=== PATIENT | male | born 1950 ===

== ENCOUNTER 2017-10-26 10:36 | Inpatient (IN) | payer MEDICARE, BC ==
[2017-10-26] MEDS: NS 0.9% 1000 ML* 2,000 ML IV ONE (11:10)
[2017-10-26] MEDS ORDERED: Diltiazem IV* 5 MG/ML 5 ML VIAL (for loading dose/IV Push) (25 MG) IV SLOW PU ONE ×2 (11:15→11:52)
[2017-10-26 11:18] LABS: ABS Basophils 0 10^3/ul (0-0.2); ABS Eosinophils 0 10^3/ul (0-0.6); ABS Lymphocytes 1.4 10^3/ul (1.0-4.8); ABS Monocytes 1.8 10^3/ul (0-0.8); ABS Neutrophils 22.1 10^3/ul (1.5-7.7); ABS Nucleated RBC 0 10^3/ul; Eosinophil % 0.1 % (0-6); Hematocrit 38 % (42-52); Hemoglobin 12.5 g/dl (14.0-18.0); Lymphocyte % 5.6 % (25-47); Mean Corpuscular HGB Conc 33 g/dl (31-36); Mean Corpuscular Hemoglobin 29 pg (27-31); Mean Corpuscular Volume 90 fL (80-94); Mean Platelet Volume 9 um3 (7.4-10.4); Nucleated Red Blood Cells % 0; Platelet Count 364 10^3/ul (150-450); Red Blood Count 4.27 10^6/ul (4.0-5.4); Red Cell Distribution Width 14 % (10.5-15); White Blood Count 25.3 10^3/ul (3.5-10.8)
[2017-10-26 11:32] LABS: INR 1.15 (0.77-1.02)
[2017-10-26 11:34] LABS: EGFR Non-African American 61.4 (>60)
[2017-10-26] MEDS ORDERED: NS 0.9% 1000 ML* 1,000 ML IV ONE (11:41)
[2017-10-26] MEDS ORDERED: Albuterol/Ipratropium NEB.SOL* Albuterol 2.5 MG/Ipratropium 0.5 MG 3 ML INH ONE (11:44)
[2017-10-26] MEDS ORDERED: cefTRIAXone(*) 1 GM in NS 0.9% 50 ML* 50 ML IVPB ONE (11:47)
[2017-10-26] MEDS ORDERED: Azithromycin IV(*) 500 MG in NS 0.9% 250 ML* 250 ML IVPB ONE (11:47)
[2017-10-26] MEDS ORDERED: Diltiazem DRIP* 100 MG/100 ML ADDV.BAG IVPB ONE (11:53)
[2017-10-26] MEDS ORDERED: Iohexol 350* (CONTRAST) 500 ML MDV IV ONE (12:20)
--- NOTE | 2017-10-26 12:29 | RAD ---
INDICATION: Tachycardia and hypoxia COMPARISON: Most recent imaging of the chest is a CT dated May 12, 2017 TECHNIQUE: Single AP portable view of the chest was obtained. FINDINGS: Image quality is compromised due to the relative inferiority of a portable chest x-ray. There is a large density obscuring most of the left hemithorax with only the apex of the left upper lobe aerated. The right lung is adequately aerated. Visualized bones are normal for the patient's age. IMPRESSION: Interval development of a large mass obscuring most of the left hemithorax. The morphology of the mass is most consistent with lobar consolidation of the left lower lobe.
--- NOTE | 2017-10-26 13:35 | HP ---
H&P (Free Text) History and Physical: History and Physical - Critical Care Reason for admission: pneumonia, hypoxia Limitations in history/physical: none Date of admission: 10/26/2017 HPI: 67y M pmhx none significant. Comes to ER for complaints of 1 day of shortness of breath, progressive. No CP. Cough+, mild sputum. No fever/chills. Mild abd pain at times, no n/v/diarrhea. No rash/joint pains. States 2 weeks he has had sinus infection symptoms of runny nose, started PO abx 1 week prior but no improvement. No sick contacts. at bedside. Denies any other medical history, no history of arrhythmias. In ER- tmax 97, tachycardic, tachypneic, hypoxic to 80s. In rapid afib 140s EKG with rapid afib. Cxr left lower and upper lobe consolidation+ ER IVF 3L NS, started on Cardizem but bp decreasing so stopped now. IV abx with ceftriaxone and azithro iv for CAP coverage. Started on hiflow NC now 100% . Last sats 96% ROS: negative except for pertinent positives mentioned above. PMHx: none PSHx: none Family History: none significant Social History: Alcohol none , Smoking- 1ppd x40yrs, Drug use-none; family- at bedside. Allergies: Allergies Allergy/AdvReac Type Severity Reaction Status Date / Time Bee Venom Allergy Severe Swelling Verified 10/04/17 09:09 Penicillins [PCN] Allergy Mild Vomiting Verified 10/04/17 09:09 Levofloxacin [From Levaquin] AdvReac Severe See Comment Verified 10/04/17 09:09 Home Medications: Albuterol HFA INHALER* [Ventolin HFA Inhaler*] 1 puff INH Q4H PRN 09/27/17 [ History Confirmed 10/26/17] Ibuprofen TAB* [Advil TAB*] 200 mg PO Q8H PRN 10/26/17 [History Confirmed ] Mometasone NASAL (NF) [Nasonex (NF)] 50 mcg BOTH NARES DAILY 10/26/17 [History Confirmed 10/26/17] Tele: rapid afib Vitals: Vital Signs Temp 96.5 F 10/26/17 10:46 Pulse 25 10/26/17 12:40 Resp 28 10/26/17 12:45 BP 119/51 10/26/17 12:45 Pulse Ox 72 10/26/17 12:40 Intake & Output 10/25/17 10/26/17 10/26/17 18:59 06:59 18:59 Intake Total 50 Balance 50 Weight 180 lb Intake: IV Fluids 50 O2/Vent: hiflow 100% 40lpm Infusions: NS Current Medications: Diltiazem HCl (Cardizem Iv Advan*) 100 mg in 100 mls @ 5 mls/hr IVPB ED ONCE ONE PRN Reason: 5 MG/HR Stop: 10/27/17 07:52 Last Admin: 10/26/17 12:05 Dose: 5 mls/hr Physical Exam: General: awake, alert, mild resp distress, no diaphoresis Head: normocephalic, atraumatic HEENT: no pallor, no icterus, moist mucous membranes Neck: soft, supple, no jvd, no stridor CVS: taachycardic, irregular, no murmur Resp: sig dec air entry on left side, no rhales, no wheeze/rhonchi; minimal/no acc muscle use, no abd muscle use. Abdomen: soft, nontender, nondistended, bowel sounds present Ext: pulses+, warm, no edema Skin: intact, no breakdown, no dryness Neuro: awake, alert, orientedx3, moving all extremities, no gross focal deficit Labs: Laboratory Results - last 24 hr 10/26/17 10/26/17 10/26/17 11:00 11:00 11:00 WBC RBC Hgb Hct MCV MCH MCHC RDW Plt Count MPV Neut % (Auto) Lymph % (Auto) [place] % (Auto) Eos % (Auto) Baso % (Auto) Absolute Neuts (auto) Absolute Lymphs (auto) Absolute Monos (auto) Absolute Eos (auto) Absolute Basos (auto) Absolute Nucleated RBC Nucleated RBC % INR (Anticoag Therapy) 1.15 H APTT 30.9 D-Dimer, Quantitative 644 H ABG pH ABG pCO2 ABG pO2 ABG HCO3 ABG O2 Saturation ABG Base Excess Sodium 137 Potassium 3.7 Chloride 102 Carbon Dioxide 24 Anion Gap 11 BUN 35 H Creatinine 1.19 H Est GFR ( Amer) 78.9 Est GFR (Non-Af Amer) 61.4 BUN/Creatinine Ratio 29.4 H Glucose 153 H Lactic Acid Calcium 9.1 Magnesium 2.0 Total Bilirubin 1.00 AST 25 ALT 35 Alkaline Phosphatase 164 H Total Creatine Kinase 56 CK-MB (CK-2) 15.9 H Troponin I 0.03 C-Reactive Protein 167.45 H B-Natriuretic Peptide 655 H Total Protein 7.6 Albumin 3.2 Globulin 4.4 H Albumin/Globulin Ratio 0.7 L Lipase < 10 L TSH 1.32 10/26/17 10/26/17 10/26/17 11:00 11:00 12:05 WBC 25.3 H RBC 4.27 Hgb 12.5 L Hct 38 L MCV 90 MCH 29 MCHC 33 RDW 14 Plt Count 364 MPV 9 Neut % (Auto) 87.3 H Lymph % (Auto) 5.6 L [place] % (Auto) 6.9 Eos % (Auto) 0.1 Baso % (Auto) 0.1 Absolute Neuts (auto) 22.1 H Absolute Lymphs (auto) 1.4 Absolute Monos (auto) 1.8 H Absolute Eos (auto) 0 Absolute Basos (auto) 0 Absolute Nucleated RBC 0 Nucleated RBC % 0 INR (Anticoag Therapy) APTT D-Dimer, Quantitative ABG pH 7.37 ABG pCO2 37 ABG pO2 60 L ABG HCO3 22.0 ABG O2 Saturation 93.4 L ABG Base Excess -3.5 L Sodium Potassium Chloride Carbon Dioxide Anion Gap BUN Creatinine Est GFR ( Amer) Est GFR (Non-Af Amer) BUN/Creatinine Ratio Glucose Lactic Acid 3.2 H* Calcium Magnesium Total Bilirubin AST ALT Alkaline Phosphatase Total Creatine Kinase CK-MB (CK-2) Troponin I C-Reactive Protein B-Natriuretic Peptide Total Protein Albumin Globulin Albumin/Globulin Ratio Lipase TSH Imaging: cxr 10/26 - left sided consolidation lower and upper lobes Assessment: 67y M pmhx none significant. Comes to ER for complaints of 1 day of shortness of breath, progressive. No CP. Cough+, mild sputum. No fever/chills. Mild abd pain at times, no n/v/diarrhea. No rash/joint pains. States 2 weeks he has had sinus infection symptoms of runny nose, started PO abx 1 week prior but no improvement. Comes in tachypneic, tachycardic, hypoxic, rapid afib with new left sided consolidation. -Acute Hypoxic respiratory failure -Left sided lower and upper lobe pneumonia, CAP -new onset Afib with rapid vent rate -hypotension -Severe sepsis -renal insufficiency Plan: Neuro- stable CVS- rapid afib, cardizem given but dropped BP. d/c cardizem. will give dig bolus for rate control. IVF bolus for sepsis, start ns infusion. Trend LA. IV abx for CAP coverage. maintain MAP>65. BP improving, may need pressors if not improved. ECHO today. Resp- hypoxic, on hiflow, seems improved. less resp distress. NIV as needed. sputum cultures. left sided consolidation+, CTA chest now. IV abx for CAP coverage. r/o effusion also. send influenza swab. abg reviewed, hypoxia, no hypercapnea. ID- afebrile. wbc 25k. left sided pneumonia. IV ceftriaxone and azithro for CAP coverage. sputum cx. legionella ag. CT chest today. GI- regular diet. Renal- Cr 1.1, unclear if any renal insuff. IVF NS bolus given. NS infusion 75cc /hour. no stewart. Heme- hg stable. plt okay. dvt prophy with scds and heparin sq. Endo- fingersticks as needed. Musculsk- pressure ulcer proph. bedrest. Wounds- none Nutrition- reg diet. DVT prophylaxis: heparin sq GI prophylaxis: pepcid po Central Line: no Arterial Line: no Stewart Cathetor: no Disposition: admit to ICU for respiratory failure, pneumonia anticipiated length of stay >2 midnights Code Status: full code Total Critical Care time is 60 minutes, excluding procedures/teaching Savage Desouza MD [employer] (Electronically Signed)
[2017-10-26] MEDS ORDERED: Albuterol/Ipratropium NEB.SOL* Albuterol 2.5 MG/Ipratropium 0.5 MG 3 ML INH PRN (13:53)
--- NOTE | 2017-10-26 13:53 | RAD ---
INDICATION: Shortness of breath positive d-dimer. COMPARISON: Comparison is made with a prior CT of the chest from May 12, 2017. TECHNIQUE: A CT angiogram of the chest was performed with intravenous following intravenous injection of 80 ml of Omnipaque 350 nonionic contrast. Contiguous axial sections were obtained from the lung apices through the lung bases. Images were reconstructed in the coronal and sagittal planes. FINDINGS: There is relatively homogeneous opacification of the pulmonary arteries. No intraluminal filling defect or pulmonary embolism is seen. The heart is within normal limits in size. No pericardial effusion is present. The thoracic aorta is normal in caliber and demonstrates homogeneous contrast opacification. There is an enlarged precarinal lymph node measuring 1.0 cm in size which has increased in size from the prior exam and previously measured 0.5 cm in size. There are also slightly prominent lymph nodes in the aorticopulmonary window region measuring up to 0.9 cm in size which are also increased in size. There is a large loculated left pleural effusion which is new from the prior study. This causes compression and atelectasis of the left lower lobe. There is a new moderate-sized right lower lobe infiltrate suspicious for pneumonia. Again note is made of a 1.4 cm nodule in the right upper lobe and a 0.5 cm nodule in the right middle lobe which are unchanged from the prior study. There is a large expansile lesion present in the left ninth posterior lateral rib and an expansile lesion in the left posterior 12th rib. There are also multiple dorsal lytic lesions. These appear similar to the prior study. There are bilateral adrenal lesions measuring up to 4.0 cm in the right adrenal gland which are unchanged from the prior study. IMPRESSION: 1. NO EVIDENCE FOR PULMONARY EMBOLISM. 2. NEW LARGE LOCULATED LEFT PLEURAL EFFUSION. 3. NEW RIGHT LOWER LOBE INFILTRATE SUSPICIOUS FOR PNEUMONIA. 4. RIGHT UPPER AND MIDDLE LOBE PULMONARY NODULES, UNCHANGED. 5. MEDIASTINAL LYMPHADENOPATHY DEMONSTRATING SLIGHT PROGRESSION. 6. BILATERAL ADRENAL MASSES, UNCHANGED. 7. LYTIC OSSEOUS METASTASES METASTASES, UNCHANGED.
[2017-10-26] MEDS ORDERED: Digoxin IV* 0.5 MG/2 ML AMP (0.25 MG/ML) IV SLOW PU ONE ×2 (13:59→20:00)
--- NOTE | 2017-10-26 14:06 | PN ---
Progress Note - Progress Note Date of Service: 10/26/17 Note: noted findings of CT chest - left large loculated effusion, right lower lobe infiltrate/pneumonia will likely need thoracentesis for drainage, to discuss with patient. Savage Desouza Md
[2017-10-26] MEDS: Heparin VIAL(*) 5000 UNITS/ML VIAL (FIVE THOUSAND) SUBCUT SCH ×2 (15:12→22:29)
[2017-10-26] MEDS: NS 0.9% 1000 ML* 1,000 ML IV SCH ×2 (15:13→23:00)
--- NOTE | 2017-10-26 17:01 | ECHO ---
Patient: DANIELLA SAWANT [facility] Rec#: [id number] : 1950 Date: 10/26/2017 Age: 67y Height: 205.74 cm / 81.0 in Weight: 83.01 kg / 183.0 lbs Sex: M BSA: 2.23 Room#: [facility] Admit Date#: 10/26/2017 Type: Inpatient Referring: Savage Desouza Reading: Lidia Rice MD Police Officer Booking: Kristina Zepeda RDCS CC: Paramjit George MD Transthoracic Echocardiogram Indication: A-fib, shortness of breath BP: 97/55 HR: 97 Rhythm: NSR Findings History: Smoker Technical Comments: The study quality is fair. The study is technically limited due to poor acoustic windows. The study was technically limited due to the patient's inability to lay in the left lateral decubitus position. Completed at 1630. Left Ventricle: The left ventricular chamber size is normal.[place] squeezes normally, 1.3 x 1.3 structure noted in the apex on apical views, can't conclusively rule out thrombus/mass. Mild concentric left ventricular hypertrophy is observed. There is normal left ventricular systolic function.Septal dysychrony noted. The estimated ejection fraction is 55-60%. Abnormal left ventricular diastolic filling is observed, consistent with impaired relaxation. Left Atrium: The left atrium is mildly dilated. Right Ventricle: Moderator Band present. The right ventricle is mildly dilated. The right ventricular global systolic function is low normal. Right Atrium: The right atrium is moderately dilated. Aortic Valve: The aortic valve is trileaflet. The aortic valve leaflets are mildly thickened. There is a trace of aortic regurgitation. There is no evidence of aortic stenosis. Mitral Valve: There is mitral annular calcification. The mitral valve leaflets are mildly thickened. There is trace to mild mitral regurgitation. There is no evidence of mitral stenosis. Tricuspid Valve: The tricuspid valve leaflets are normal. There is trace to mild tricuspid regurgitation. The right ventricular systolic pressure is estimated at 45 mmHg. There is evidence of mild to moderate pulmonary hypertension. There is no tricuspid stenosis. Pulmonic Valve: The pulmonic valve appears normal. There is a trace pulmonic regurgitation. There is no pulmonic stenosis. Pericardium: There is no significant pericardial effusion. There are no signs of significant hemodynamic compromise. A left pleural effusion is present. There is a large pleural effusion. Aorta: There is moderate dilatation of the ascending aorta. There is no dilatation of the aortic arch. There is mild dilatation of the aortic root. Pulmonary Artery: The main pulmonary artery is not well visualized. Venous: The inferior vena cava is dilated. There is less than 50% respiratory change in the inferior vena cava dimension. Conclusions The study quality is fair. Mild concentric left ventricular hypertrophy is observed. There is normal left ventricular systolic function, mild septal dysychrony noted. The apex squeezes normally, 1.3 x 1.3 structure noted in the apex on apical views, can't conclusively rule out thrombus/mass. The estimated ejection fraction is 55-60%. The right ventricle is mildly dilated. The right ventricular global systolic function is low normal. Bi atrial enlargement. There is trace to mild mitral regurgitation. There is trace to mild tricuspid regurgitation. The right ventricular systolic pressure is estimated at 45 mmHg. A left pleural effusion is present. No prior echo available to compare. Recommend/consider echo contrast to optimize evaluation of LV apical structure. The patient was in normal sinus rhythm throughout the study. Measurements Name Value Normal Range RVIDd (AP) 2D 2.3 cm (0.9 - 2.6) RVDdMajor (2D) 4.5 cm (2.2 - 4.4) RVAW (2D) 0.6 cm (0.2 - 0.5) RAd ISD 4CH 6 cm (3.4 - 4.9) RA (A4C)W 3.7 cm (2.9 - 4.6) IVSd (2D) 1.1 cm (0.6 - 1) LVPWd (2D) 1.1 cm (0.6 - 1) LVIDd (2D) 3.9 cm (3.6 - 5.4) LVIDs (2D) 2.4 cm - LV FS (2D) 39 % (25 - 45) Aortic Annulus 2.1 cm (1.4 - 2.6) Ao root diameter (2D) 4 cm (2.1 - 3.5) Ascending Ao 4.1 cm (2.1 - 3.4) Aortic arch 2.4 cm (1.8 - 3.4) LA dimension (AP) 2D 3.2 cm (2.3 - 3.8) LAd ISD 4CH 6.5 cm (2.9 - 5.3) LA ISD 4CH W 3.6 cm (2.5 - 4.5) Name Value Normal Range LA ESV SP 4CH (A/L) 57 ml - LA ESV SP 2CH (A/L) 113 ml - LA ESV BP (A/L) 84 ml - LA ESV BP (A/L) index 38 ml/m2 - LA ESV SP 4CH (MOD) 50 ml - LA ESV SP 2CH (MOD) 109 ml - Name Value Normal Range MV E-wave Vmax 0.9 m/sec - MV deceleration time 253.86 msec - MV A-wave Vmax 0.88 m/sec - MV E:A ratio 1.01 ratio - LV septal e' Vmax 0.07 m/sec - LV lateral e' Vmax 0.07 m/sec - LV E:e' septal ratio 12.86 ratio - LV E:e' lateral ratio 12.86 ratio - Name Value Normal Range AV Vmax 1.5 m/sec - AV VTI 23.81 cm - AV peak gradient 8.71 mmHg - AV mean gradient 3.87 mmHg - LVOT Vmax 1.28 m/sec - LVOT VTI 22.05 cm - LVOT peak gradient 6.62 mmHg - LVOT mean gradient 2.74 mmHg - JOSELUIS Vmax 0.79 m/sec - Name Value Normal Range TR Vmax 2.5 m/sec - TR peak gradient 25 mmHg - RAP 20 mmHg - RVSP 45 mmHg - IVC diameter 3.5 cm - Name Value Normal Range PV Vmax 0.97 m/sec - PV peak gradient 3.76 mmHg -
[2017-10-26] MEDS ORDERED: cefTRIAXone(*) 1 GM in D5W 50 ML BAG* 50 ML IVPB ONE (18:00)
--- NOTE | 2017-10-26 18:01 | ED ---
Tejinder Stock Julia, scribed for Chava Pal MD on 10/26/17 at 1147 . Shortness of Breath - HPI Summary HPI Summary: This patient is a 67 year old M presenting to [facility] accompanied by his with a chief complaint of constant SOB since this morning. The patient rates the pain 0/10 in severity. Symptoms aggravated by nothing. Symptoms alleviated by nothing. Patient reports generalized weakness for days, mild chest pain, and a sinus infection two months ago. Patient denies leg pain, nausea, or dizziness. - History of Current Complaint Chief Complaint: EDShortnessOfBreath Time Seen by Provider: 10/26/17 10:49 Hx Obtained From: Patient Onset/Duration: Lasting Hours, Still Present Aggrevating Factors: Nothing Alleviating Factors: Nothing Associated Signs & Symptoms: Chest Pain Unrelated to Cough - Allergy/Home Medications Allergies/Adverse Reactions: Allergies Allergy/AdvReac Type Severity Reaction Status Date / Time Bee Venom Allergy Severe Swelling Verified 10/04/17 09:09 Penicillins [PCN] Allergy Mild Vomiting Verified 10/04/17 09:09 Levofloxacin [From Levaquin] AdvReac Severe See Comment Verified 10/04/17 09:09 Home Medications: Home Medications Ibuprofen TAB* [Advil TAB*] 200 mg PO Q8H PRN 10/26/17 [History Confirmed ] Mometasone NASAL (NF) [Nasonex (NF)] 50 mcg BOTH NARES DAILY 10/26/17 [History Confirmed 10/26/17] PMH/Surg Hx/FS Hx/Imm Hx Endocrine/Hematology History: Denies: Hx Diabetes Cardiovascular History: Denies: Hx Atrial Fibrillation, Hx Congestive Heart Failure, Hx Hypertension History: Denies: Hx Renal Disease Infectious Disease History: No Infectious Disease History: Denies: Traveled Outside the [place] in Last 30 Days - Family History Known Family History: Negative: Respiratory Disease - Social History Alcohol Use: Weekly Alcohol Amount: patient states varies from none to 1-2 5x/wk Hx Substance Use: No Substance Use Type: Reports: None Hx Tobacco Use: Yes Smoking Status (MU): Heavy Every Day Tobacco Smoker Type: Cigarettes Review of Systems Positive: Other - Sinus infection Positive: Chest Pain - mild Positive: Shortness Of Breath Negative: Nausea Positive: Other - Negative leg pain Neurological: Other - negative - dizziness Positive: Weakness All Other Systems Reviewed And Are Negative: Yes Physical Exam - Summary Physical Exam Summary: General: well-appearing, no pain distress Skin: warm, color reflects adequate perfusion, dry Head: normal Eyes: EOMI, WILL ENT: normal Neck: supple, nontender Respiratory: Breath sounds present. Mild respiratory distress. Bilateral rhonchi present. Cardiovascular: Regular rate. Tacycardic. Abdomen: soft, nontender Bowel: present Musculoskeletal: normal, strength/ROM intact. No edema present. Neurological: normal, sensory/motor intact, A&O x3 Psychological: affect/mood appropriate Triage Information Reviewed: Yes Vital Signs On Initial Exam: Initial Vitals Pulse Pulse Ox 91 83 10/26/17 10:45 10/26/17 10:45 Vital Signs Reviewed: Yes Diagnostics - Vital Signs Vital Signs Temp Pulse Resp BP Pulse Ox 10/26/17 11:30 32 113/81 10/26/17 11:28 29 95/42 10/26/17 11:27 57 24 105/44 76 10/26/17 11:22 107 27 98/64 86 10/26/17 11:00 165 28 99 10/26/17 10:47 104/84 10/26/17 10:46 96.5 F 169 22 104/84 90 10/26/17 10:45 91 83 - Laboratory Lab Results: Lab Results 10/26/17 10/26/17 10/26/17 Range/Units 11:00 11:00 11:00 WBC 25.3 H (3.5-10.8) 10^3/ul RBC 4.27 (4.0-5.4) 10^6/ul Hgb 12.5 L (14.0-18.0) g/dl Hct 38 L (42-52) % MCV 90 (80-94) fL MCH 29 (27-31) pg MCHC 33 (31-36) g/dl RDW 14 (10.5-15) % Plt Count 364 (150-450) 10^3/ul MPV 9 (7.4-10.4) um3 Neut % (Auto) 87.3 H (38-83) % Lymph % (Auto) 5.6 L (25-47) % [place] % (Auto) 6.9 (1-9) % Eos % (Auto) 0.1 (0-6) % Baso % (Auto) 0.1 (0-2) % Absolute Neuts (auto) 22.1 H (1.5-7.7) 10^3/ul Absolute Lymphs (auto) 1.4 (1.0-4.8) 10^3/ul Absolute Monos (auto) 1.8 H (0-0.8) 10^3/ul Absolute Eos (auto) 0 (0-0.6) 10^3/ul Absolute Basos (auto) 0 (0-0.2) 10^3/ul Absolute Nucleated RBC 0 10^3/ul Nucleated RBC % 0 INR (Anticoag Therapy) 1.15 H (0.77-1.02) APTT 30.9 (26.0-36.3) seconds D-Dimer, Quantitative 644 H (Less Than 230) ng/mL Sodium 137 (133-145) mmol/L Potassium 3.7 (3.5-5.0) mmol/L Chloride 102 (101-111) mmol/L Carbon Dioxide 24 (22-32) mmol/L Anion Gap 11 (2-11) mmol/L BUN 35 H (6-24) mg/dL Creatinine 1.19 H (0.67-1.17) mg/dL Est GFR ( Amer) 78.9 (>60) Est GFR (Non-Af Amer) 61.4 (>60) BUN/Creatinine Ratio 29.4 H (8-20) Glucose 153 H (70-100) mg/dL Lactic Acid (0.5-2.0) mmol/L Calcium 9.1 (8.6-10.3) mg/dL Magnesium 2.0 (1.9-2.7) mg/dL Total Bilirubin 1.00 (0.2-1.0) mg/dL AST 25 (13-39) U/L ALT 35 (7-52) U/L Alkaline Phosphatase 164 H (34-104) U/L Total Creatine Kinase 56 (10-223) U/L CK-MB (CK-2) 15.9 H (0.6-6.3) ng/mL Troponin I 0.03 (<0.04) ng/mL C-Reactive Protein 167.45 H (< 5.00) mg/L Total Protein 7.6 (6.4-8.9) g/dL Albumin 3.2 (3.2-5.2) g/dL Globulin 4.4 H (2-4) g/dL Albumin/Globulin Ratio 0.7 L (1-3) Lipase < 10 L (11.0-82.0) U/L TSH Pending 10/26/17 Range/Units 11:00 WBC (3.5-10.8) 10^3/ul RBC (4.0-5.4) 10^6/ul Hgb (14.0-18.0) g/dl Hct (42-52) % MCV (80-94) fL MCH (27-31) pg MCHC (31-36) g/dl RDW (10.5-15) % Plt Count (150-450) 10^3/ul MPV (7.4-10.4) um3 Neut % (Auto) (38-83) % Lymph % (Auto) (25-47) % [place] % (Auto) (1-9) % Eos % (Auto) (0-6) % Baso % (Auto) (0-2) % Absolute Neuts (auto) (1.5-7.7) 10^3/ul Absolute Lymphs (auto) (1.0-4.8) 10^3/ul Absolute Monos (auto) (0-0.8) 10^3/ul Absolute Eos (auto) (0-0.6) 10^3/ul Absolute Basos (auto) (0-0.2) 10^3/ul Absolute Nucleated RBC 10^3/ul Nucleated RBC % INR (Anticoag Therapy) (0.77-1.02) APTT (26.0-36.3) seconds D-Dimer, Quantitative (Less Than 230) ng/mL Sodium (133-145) mmol/L Potassium (3.5-5.0) mmol/L Chloride (101-111) mmol/L Carbon Dioxide (22-32) mmol/L Anion Gap (2-11) mmol/L BUN (6-24) mg/dL Creatinine (0.67-1.17) mg/dL Est GFR ( Amer) (>60) Est GFR (Non-Af Amer) (>60) BUN/Creatinine Ratio (8-20) Glucose (70-100) mg/dL Lactic Acid 3.2 H* (0.5-2.0) mmol/L Calcium (8.6-10.3) mg/dL Magnesium (1.9-2.7) mg/dL Total Bilirubin (0.2-1.0) mg/dL AST (13-39) U/L ALT (7-52) U/L Alkaline Phosphatase (34-104) U/L Total Creatine Kinase (10-223) U/L CK-MB (CK-2) (0.6-6.3) ng/mL Troponin I (<0.04) ng/mL C-Reactive Protein (< 5.00) mg/L Total Protein (6.4-8.9) g/dL Albumin (3.2-5.2) g/dL Globulin (2-4) g/dL Albumin/Globulin Ratio (1-3) Lipase (11.0-82.0) U/L TSH Result Diagrams: 10/26/17 11:00 10/26/17 11:00 Lab Statement: Any lab studies that have been ordered have been reviewed, and results considered in the medical decision making process. - Radiology Chest XR Radiology Interpretation Completed By: Radiologist - This chest XR reveals Interval development of a large mass obscuring most of the left hemithorax. The morphology of the mass is most consistent with lobar consolidation of the left lower lobe. ED Physician has reviewed this report. - EKG 11:02 Cardiac Rate: Tachycardia EKG Rhythm: Sinus Tachycardia - at 149 BPM EKG Interpretation: This EKG reveals L anterior fascicular block. Course/Dx - Course Course Of Treatment: DR LEWIS, ICU, SAW PATIENT IN ED. ADMIT ICU. - Diagnoses Provider Diagnoses: New onset a-fib, Pneumonia, Hypoxia, Hypotension - Critical Care Time Critical Care Time: 75-104 min Discharge - Discharge Plan Condition: Fair Disposition: ADMITTED TO [facility] documentation as recorded by the Tejinder marino Julia accurately reflects the service I personally performed and the decisions made by , Chava Pal MD.
[2017-10-26] MEDS ORDERED: Lidocaine 1% INJ* 10 MG/ML 30 ML SDV ONE (18:06)
[2017-10-26 18:22] LABS: INR 1.17 (0.77-1.02)
--- NOTE | 2017-10-26 18:40 | PN ---
Progress Note - Progress Note Date of Service: 10/26/17 Note: large left effusion, loculated based on US consistency, unclear if empyema/abscess or blood decision for larger surgical chest tube placement placed at bedside by Dr Briggs fould smelling, cream colored fluid already >1200cc and still draining removed from left chest. hemodynamics stable, on hiflow, hr 80s mild left chest pain prn morphine cxr now send for culture and fluid analysis. on ceftriaxone and azithro; change to zosyn for anaerobic coverage and vancomycin iv. yuriy fletcher md
[2017-10-26] MEDS ORDERED: Vancomycin per Pharmacy* NOTE FOLLOW UP SCH (19:00)
--- NOTE | 2017-10-26 19:22 | RAD ---
INDICATION: Pain following chest tube insertion COMPARISON: October 26, 2017; CTA chest October 26, 2017 TECHNIQUE: An AP portable view obtained at 1850 hours is submitted. FINDINGS: Bones/Soft Tissues: There are no acute bony findings. There is been interval placement of a left-sided chest tube. Cardiomediastinal: Heart is normal in size. Lungs: There is improved aeration left hemithorax post chest tube placement. There is no pneumothorax. There is patchy infiltrative change in the left hemithorax. The right lung is grossly clear. Pleura: Small bilateral pleural effusions. Other: None IMPRESSION: IMPROVED AERATION OF THE LEFT CHEST POST CHEST TUBE INSERTION. NO ADDITIONAL SIGNIFICANT CHANGES
[2017-10-26] MEDS: Vancomycin(*) 1,000 MG in NS 0.9% 250 ML* 250 ML IVPB ONE ×2 (19:30→19:35)
[2017-10-26] MEDS ORDERED: Acetaminophen SUPP* 650 MG SUPP PR PRN (19:58)
[2017-10-26] MEDS: Meropenem 1 GM PREMIX(*) 1 GM/50 ML BAG IV SCH (20:15)
[2017-10-26 20:32] LABS: ABS Basophils 0 10^3/ul (0-0.2); ABS Eosinophils 0 10^3/ul (0-0.6); ABS Lymphocytes 0.5 10^3/ul (1.0-4.8); ABS Monocytes 0.8 10^3/ul (0-0.8); ABS Neutrophils 24.3 10^3/ul (1.5-7.7); ABS Nucleated RBC 0 10^3/ul; Eosinophil % 0 % (0-6); Hematocrit 36 % (42-52); Hemoglobin 11.8 g/dl (14.0-18.0); Mean Corpuscular HGB Conc 32 g/dl (31-36); Mean Corpuscular Hemoglobin 29 pg (27-31); Mean Corpuscular Volume 90 fL (80-94); Mean Platelet Volume 9 um3 (7.4-10.4); Nucleated Red Blood Cells % 0; Platelet Count 318 10^3/ul (150-450); Red Blood Count 4.04 10^6/ul (4.0-5.4); Red Cell Distribution Width 14 % (10.5-15); White Blood Count 25.7 10^3/ul (3.5-10.8)
[2017-10-26] MEDS ORDERED: Morphine INJ* 2 MG/ML 1 ML SYRINGE (TWO MG - NEW SYRINGE VERSION) IV PRN (20:39)
[2017-10-26] MEDS ORDERED: Morphine INJ* 2 MG/ML 1 ML SYRINGE (TWO MG - NEW SYRINGE VERSION) ONE (20:42)
[2017-10-26 20:46] LABS: EGFR Non-African American 84.7 (>60)
[2017-10-26 21:01] LABS: Monocytes % 6 % (0-13)
[2017-10-26] MEDS ORDERED: NS 0.9% 500 ML* 500 ML IV ONE (23:00)
[2017-10-27] MEDS ORDERED: Succinylcholine* 20 MG/ML 10 ML VIAL ONE (02:29)
[2017-10-27] MEDS: Norepinephrine VIAL* 8 MG in NS 0.9% 500 ML* 492 ML IVPB SCH ×2 (02:30→18:04)
[2017-10-27] MEDS ORDERED: Propofol* 100 ML ONE ×2 (02:30→07:53)
[2017-10-27] MEDS ORDERED: Propofol* 10 MG/ML 20 ML BTL IV PUSH ONE (02:42)
[2017-10-27] MEDS ORDERED: Norepinephrine 16MCG/ML IVPRE* (4 MG/250 ML) IV ONE (02:42)
[2017-10-27] MEDS ORDERED: Amiodarone 150 MG IVPREMIX* 150 MG/100 ML BAG IV ONE ×3 (03:03→04:30)
[2017-10-27] MEDS: Meropenem 1 GM PREMIX(*) 1 GM/50 ML BAG IV SCH ×3 (03:24→18:44)
[2017-10-27 03:29] LABS: Hematocrit 38 % (42-52); Hemoglobin 12.1 g/dl (14.0-18.0); Mean Corpuscular HGB Conc 31 g/dl (31-36); Mean Corpuscular Hemoglobin 29 pg (27-31); Mean Corpuscular Volume 93 fL (80-94); Mean Platelet Volume 9 um3 (7.4-10.4); Platelet Count 405 10^3/ul (150-450); Red Blood Count 4.13 10^6/ul (4.0-5.4); Red Cell Distribution Width 15 % (10.5-15); White Blood Count 44.5 10^3/ul (3.5-10.8)
[2017-10-27 03:40] LABS: EGFR Non-African American 54.4 (>60)
[2017-10-27] MEDS ORDERED: NS 0.45% 1000 ML BAG* 1,000 ML IV SCH (04:00)
[2017-10-27] MEDS ORDERED: NS 0.9% 500 ML* 500 ML IV ONE (04:00)
[2017-10-27] MEDS: Vancomycin(*) 1,000 MG in NS 0.9% 250 ML* 250 ML IVPB SCH ×3 (04:02→20:52)
[2017-10-27] MEDS ORDERED: Digoxin IV* 0.5 MG/2 ML AMP (0.25 MG/ML) IV ONE (05:26)
[2017-10-27] MEDS: Heparin VIAL(*) 5000 UNITS/ML VIAL (FIVE THOUSAND) SUBCUT SCH ×3 (05:42→20:52)
[2017-10-27] MEDS ORDERED: AMIODARONE IV ONE (06:30)
--- NOTE | 2017-10-27 07:25 | CONSULT ---
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 Naun carrizales is a 67 year old man admitted with severe pneumonia with empyema and atrial fibrillation. He had received IV diltiazem and digoxin yesterday and had converted to sinus rhythm spontaneously. He had a chest tube placed on the left. Earlier this morning he had respiratory decompensation requiring intubation and return of atrial fibrillation. He has severe acid/ base abnormalities that I suspect contributed to the return of atrial fibrillation and also his critical illness. His pH is starting to improve post- ibtubation. He was given more IV digoxin including 0.5 mg about 2-3 hours ago. He remained with rapid atrial fibrillation. Was also given a total of 300 mg IV amiodarone. He remains with rapid atrial fibrillation. IV diltiazem had caused hypotension previously. He is on 10 of levophed currently. family hx: non-contributory pmhx/pshx: uncertain at time of consultation, patient intubated unable to provide a history. From review of records appears to be an underlying malignancy. Social History Alcohol none , Smoking- 1ppd x40yrs, Drug use-none; not present Allergies: Allergy/AdvReac Type Severity Reaction Status Date / Time Bee Venom Allergy Severe Swelling Verified 10/04/17 09:09 Penicillins [PCN] Allergy Mild Vomiting Verified 10/04/17 09:09 Levofloxacin [From Levaquin] AdvReac Severe See Comment Verified 10/04/ Medications Active Medications: Acetaminophen (Tylenol Supp*) 650 mg [place] Q6H PRN PRN Reason: PAIN OR TEMPERATURE Last Admin: 10/26/17 22:29 Dose: 650 mg Albuterol/Ipratropium (Duoneb (Albuterol 2.5 Mg/Ipratropium 0.5 Mg)) 1 neb INH Q4H PRN PRN Reason: SOB/WHEEZING Famotidine (Pepcid Tab*) 20 mg PO DAILY MERLIN Heparin Sodium (Porcine) (Heparin Vial(*)) 5,000 units SUBCUT Q8HR MERLIN Last Admin: 10/27/17 05:42 Dose: 5,000 units Meropenem (Merrem 1 Gm Premix(*)) 1 gm in 50 mls @ 100 mls/hr IV Q8H MERLIN Last Admin: 10/27/17 03:24 Dose: 100 mls/hr Vancomycin HCl 1,000 mg/ (Sodium Chloride) 250 mls @ 166.667 mls/hr IVPB Q8H MERLIN Last Admin: 10/27/17 04:02 Dose: 166.667 mls/hr Norepinephrine Bitartrate 8 mg (/ Sodium Chloride) 500 mls @ 18.75 mls/hr IVPB Q24H MERLIN; 5 MCG/MIN PRN Reason: Protocol Last Admin: 10/27/17 02:30 Dose: 18.75 mls/hr Amiodarone HCl (Nexterone 360 Mg/200 Ml Ivpremix*) 360 mg in 200 mls @ 33.333 mls/hr IV ONCE ONE PRN Reason: 1 MG/MIN Stop: 10/27/17 12:29 Last Admin: 10/27/17 06:50 Dose: 33.333 mls/hr Amiodarone HCl (Nexterone 360 Mg/200 Ml Ivpremix*) 360 mg in 200 mls @ 16.667 mls/hr IV PER RATE MERLIN; 0.5 MG/MIN PRN Reason: Protocol Stop: 10/28/17 06:29 Morphine Sulfate (Morphine Inj (Syringe)*) 1 mg IV Q2H PRN PRN 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 Last Admin: 10/26/17 20:55 Dose: 1 mg Pharmacy Consult (Vancomycin Per Pharmacy*) 1 note FOLLOW UP .VANC PER PHARMACY [facility] Pharmacy Profile Note (Vancomycin Trough Check) 1 note FOLLOW UP 1900 ONE Stop: 10/27/17 19:01 Home Medications: Albuterol HFA INHALER* [Ventolin HFA Inhaler*] 1 puff INH Q4H PRN 09/27/17 [ History Confirmed 10/26/17] Ibuprofen TAB* [Advil TAB*] 200 mg PO Q8H PRN 10/26/17 [History Confirmed ] Mometasone NASAL (NF) [Nasonex (NF)] 50 mcg BOTH NARES DAILY 10/26/17 [History Confirmed 10/26/17] Review of Systems - Measurements Intake and Output: Intake and Output Last 24 Hours 10/25/17 10/26/17 10/27/1710/28/17 06:59 06:59 06:59 06:59 Intake Total 3750 Output Total 850 Balance 2900 Weight 178 lb 2.136 oz Intake: IV Fluids 2628 NS (0.9%) 2628 IVPB 574 NS (0.9%) 574 Medicated IV 428 CC - Amiodarone 200 CC - Norepinephrine/ 167 Levophed CC - Propofol/Diprivan 61 Oral 120 Output: Chest Tube #1 275 Urine 200 Fregoso 375 - Review of Systems Review of Systems Statement: unable to obtain due to intubated and sedated status. Objective Vital Signs: Temp Pulse Resp BP Pulse Ox 98.2 F 151 20 93/54 100 10/27/17 07:01 10/27/17 07:01 10/27/17 06:00 10/27/17 07:00 10/27/17 07:01 Oxygen Devices in Use Now: BiPAP Appearance: criticall ill, intubated, sedation Neck: NL Appearance and Movements; NL JVP, Trachea Midline Respiratory: - - transmitted breath sounds, no obvious wheeze Cardiovascular: - - tachycardic, irregularly irreuglar, no significant murmur Abdominal: NL Sounds; No Tenderness; No Distention Extremities: No Edema, No Clubbing, Cyanosis Skin: No Rash or Ulcers Neurological: - - sedated, unresponsive Laboratory Results: 10/27/17 03:20 10/27/17 03:20 INR (Anticoag Therapy) 1.17 (0.77-1.02) H 10/26/17 17:30 APTT 32.8 seconds (26.0-36.3) 10/26/17 17:30 Total Bilirubin 0.70 mg/dL (0.2-1.0) 10/26/17 20:24 AST 17 U/L (13-39) 10/26/17 20:24 ALT 26 U/L (7-52) 10/26/17 20:24 Alkaline Phosphatase 126 U/L (34-104) H 10/26/17 20:24 CK-MB (CK-2) 15.9 ng/mL (0.6-6.3) H 10/26/17 11:00 B-Natriuretic Peptide 259 pg/mL (-100) H 10/26/17 17:30 Total Protein 5.8 g/dL (6.4-8.9) L 10/26/17 20:24 Albumin 2.4 g/dL (3.2-5.2) L 10/26/17 20:24 Globulin 3.4 g/dL (2-4) 10/26/17 20:24 Albumin/Globulin Ratio 0.7 (1-3) L 10/26/17 20:24 TSH 1.32 mcIU/mL (0.34-5.60) 10/26/17 11:00 10/26/17 11:00 Troponin I 0.03 WBC 44.5 10^3/ul (3.5-10.8) H 10/27/17 03:20 RBC 4.13 10^6/ul (4.0-5.4) 10/27/17 03:20 Hgb 12.1 g/dl (14.0-18.0) L 10/27/17 03:20 Hct 38 % (42-52) L 10/27/17 03:20 MCV 93 fL (80-94) 10/27/17 03:20 MCH 29 pg (27-31) 10/27/17 03:20 MCHC 31 g/dl (31-36) 10/27/17 03:20 RDW 15 % (10.5-15) 10/27/17 03:20 Plt Count 405 10^3/ul (150-450) 10/27/17 03:20 MPV 9 um3 (7.4-10.4) 10/27/17 03:20 Neut % (Auto) 94.6 % (38-83) H 10/26/17 20:24 Lymph % (Auto) 2.0 % (25-47) L 10/26/17 20:24 Louisa % (Auto) 3.2 % (1-9) 10/26/17 20:24 Eos % (Auto) 0 % (0-6) 10/26/17 20:24 Baso % (Auto) 0.2 % (0-2) 10/26/17 20:24 Absolute Neuts (auto) 24.3 10^3/ul (1.5-7.7) H 10/26/17 20:24 Absolute Lymphs (auto) 0.5 10^3/ul (1.0-4.8) L 10/26/17 20:24 Absolute Monos (auto) 0.8 10^3/ul (0-0.8) 10/26/17 20:24 Absolute Eos (auto) 0 10^3/ul (0-0.6) 10/26/17 20:24 Absolute Basos (auto) 0 10^3/ul (0-0.2) 10/26/17 20:24 Absolute Nucleated RBC 0 10^3/ul 10/26/17 20:24 Immature Gran % 10 % (0-9) H 10/26/17 20:24 Neutrophils % 81 % (38-83) 10/26/17 20:24 Band Neutrophils % 10 % (0-8) H 10/26/17 20:24 Lymphocytes % 3 % (25-47) L 10/26/17 20:24 Monocytes % 6 % (0-13) 10/26/17 20:24 Nucleated RBC % 0 10/26/17 20:24 Normal RBC Morphology Normal (Normal) 10/26/17 20:24 INR (Anticoag Therapy) 1.17 (0.77-1.02) H 10/26/17 17:30 APTT 32.8 seconds (26.0-36.3) 10/26/17 17:30 D-Dimer, Quantitative 644 ng/mL (Less Than 230) H 10/26/17 11:00 Patient Temperature Not Reportable 10/27/17 06:34 ABG pH 7.13 (7.35-7.45) L* 10/27/17 06:34 ABG pH (Temp Correct) Not Reportable 10/27/17 06:34 ABG pCO2 61 mmHg (35-45) H 10/27/17 06:34 ABG pCO2 (Temp Corrct Not Reportable 10/27/17 06:34 ABG pO2 143 mmHg (80-100) H 10/27/17 06:34 ABG pO2 (Temp Correct Not Reportable 10/27/17 06:34 ABG HCO3 17.4 mmol/L (19-31) L 10/27/17 06:34 ABG O2 Saturation 100.1 % (95-98) H 10/27/17 06:34 ABG Base Excess -9.6 (-2.0-2.0) L 10/27/17 06:34 Respiration Rate 24 10/27/17 06:34 O2 Delivery Device vent 10/27/17 06:34 Ventilator Type 580 10/27/17 06:34 Vent Mode cmv 10/27/17 06:34 FiO2 100 10/27/17 06:34 Inspiratory Time .9 10/27/17 06:34 PEEP 10 10/27/17 06:34 Pressure Support Not Reportable 10/27/17 06:34 Pressure Control Not Reportable 10/27/17 06:34 EPAP Not Reportable 10/27/17 06:34 IPAP Not Reportable 10/27/17 06:34 BiPAP Not Reportable 10/27/17 06:34 Sodium 140 mmol/L (133-145) 10/27/17 03:20 Potassium 5.3 mmol/L (3.5-5.0) H 10/27/17 03:20 Chloride 111 mmol/L (101-111) 10/27/17 03:20 Carbon Dioxide 25 mmol/L (22-32) 10/27/17 03:20 Anion Gap 4 mmol/L (2-11) 10/27/17 03:20 BUN 30 mg/dL (6-24) H 10/27/17 03:20 Creatinine 1.32 mg/dL (0.67-1.17) H 10/27/17 03:20 Est GFR ( Amer) 70.0 (>60) 10/27/17 03:20 Est GFR (Non-Af Amer) 54.4 (>60) 10/27/17 03:20 BUN/Creatinine Ratio 22.7 (8-20) H 10/27/17 03:20 Glucose 169 mg/dL (70-100) H 10/27/17 03:20 Lactic Acid 3.2 mmol/L (0.5-2.0) H* 10/26/17 11:00 Calcium 8.4 mg/dL (8.6-10.3) L 10/27/17 03:20 Phosphorus 7.5 mg/dL (2.5-5.0) H 10/27/17 03:20 Magnesium 1.9 mg/dL (1.9-2.7) 10/27/17 03:20 Total Bilirubin 0.70 mg/dL (0.2-1.0) 10/26/17 20:24 AST 17 U/L (13-39) 10/26/17 20:24 ALT 26 U/L (7-52) 10/26/17 20:24 Alkaline Phosphatase 126 U/L (34-104) H 10/26/17 20:24 Total Creatine Kinase 56 U/L (10-223) 10/26/17 11:00 CK-MB (CK-2) 15.9 ng/mL (0.6-6.3) H 10/26/17 11:00 Troponin I 0.03 ng/mL (<0.04) 10/26/17 11:00 C-Reactive Protein 167.45 mg/L (< 5.00) H 10/26/17 11:00 B-Natriuretic Peptide 259 pg/mL (-100) H 10/26/17 17:30 Total Protein 5.8 g/dL (6.4-8.9) L 10/26/17 20:24 Albumin 2.4 g/dL (3.2-5.2) L 10/26/17 20:24 Globulin 3.4 g/dL (2-4) 10/26/17 20:24 Albumin/Globulin Ratio 0.7 (1-3) L 10/26/17 20:24 Lipase < 10 U/L (11.0-82.0) L 10/26/17 11:00 TSH 1.32 mcIU/mL (0.34-5.60) 10/26/17 11:00 Fluid Source Pleural fluid 10/26/17 18:00 Fluid Volume 5 mL 10/26/17 18:00 Fluid Color 10/26/17 18:00 Fluid Appearance 10/26/17 18:00 Fluid WBC 829918 /mcL (0-970930) 10/26/17 18:00 Fluid RBC 67272 /mcL 10/26/17 18:00 Influenza A (Rapid) Negative (Negative) 10/26/17 13:47 Influenza B (Rapid) Negative (Negative) 10/26/17 13:47 Diagnostic Imaging: Echo 10/27/[address] Davis while in sinus rhythm Mild aortic root/ascending aorta dilation Normal LV size Mild LVH Mild LA dilation LVEF 60-65% no with prominent apical fibromuscular false tendon, apical wall motion is normal. Mild RV dilation/dysfunction No significant valvular abnormalities noted Unable to estimate PASP Large Left lung consolidaiton EKG Data: EKG 10/27/2017: Rapid atrial fibrillation Assessment/Plan Mr. Magallon is a 67 year old man admitted with severe pneumonia/empyema ? underlying malignancy now intubated on pressors being consulted for intermittent rapid atrial fibrillation with difficult to control heart rates. - Current episode of atrial fibrillation has been < 6 hours. It appears the atrial fibrillation and tachycardia is being driven by his underling critical illness and improvement of this will also help control heart rates. We will start him on an amiodarone gtt as ordered for rate control and rhythm control. I would give a little bit more time for the recent digoxin bolus take full effect. I suspect has acid/base status improves he will revert back to sinus rhythm on an amiodarone gtt. If not and remains tachycardic, would be reasonable to restart dilitiazem gtt but may require an increase in pressor dose. It may also be reasonable to change is pressor to neosynephrine that would have less heart rate effect if the above is ineffective. Thank you for allowing me to participate in the cardiovascular care of this patient. Please do not hesitate to contact me with questions or concerns.
[2017-10-27] MEDS ORDERED: Dextrose 50% Syringe 50 ML* 25 GM/50 ML SYRINGE IV PUSH PRN (07:42)
[2017-10-27] MEDS ORDERED: Sodium Bicarbonate 8.4% IV* 50 ML VIAL IV ONE (07:42)
[2017-10-27] MEDS ORDERED: Insulin REGULAR(*) 1 UNITS UNIT IV PUSH ONE (07:42)
[2017-10-27] MEDS ORDERED: Calcium Gluconate INJ* 2 GM in NS 0.9% 100 ML* 100 ML IV ONE (07:43)
--- NOTE | 2017-10-27 07:46 | RAD ---
INDICATION: ABC alert post intubation COMPARISON: Most recent comparison chest x-ray is dated October 26, 2017 TECHNIQUE: Single AP portable view of the chest was obtained. FINDINGS: Image quality is compromised due to the relative inferiority of a portable chest x-ray. There is been interval placement of an endotracheal tube with the tip terminating 3.4 cm above the rebecca and a gastric tube terminating below the level of the diaphragm. There is again seen patchy density obscuring the left lung as well as more focal density obscuring the left lung base. The right lung is adequately aerated. IMPRESSION: Interval placement of an appropriately positioned endotracheal and gastric tubes. Density obscuring the left lung, more focally at the lung base, could represent pneumonia with or without pleural effusion.
[2017-10-27] MEDS ORDERED: Digoxin TAB* 0.125 MG PO SCH (08:00)
[2017-10-27] MEDS: Propofol* 1000 MG (10 MG/ML 100 ml) @ Per Protocol (in ICU Pyxis) IV SCH ×4 (08:11→20:53)
--- NOTE | 2017-10-27 08:13 | PN ---
Progress Note - Progress Note Date of Service: 10/27/17 - time: ~0245 Note: ABC alert called ~0245. Mr Magallon is a 67YO male admitted to ICU for CAP w/ massive L pulmonary abscess s/p chest tube which has drained >1500cc praveen pus. Upon arrival, nursing reports sudden apneic respiratory on BiPap. Emergent intubation was performed, please review note. Post-intubation he developed hypotension requiring norepinephrine GTT at 10. His AFIB became uncontrolled with a rate in the 150-170s, refractory to 150mg amiodarone bolus x2 & digoxin 0.5mg x1. Case was reviewed with David Davis MD cardiology who advised adding amiodarone GTT 1mg/min x6h then 0.5mg/min x18h & will evaluate in AM. Denise Desouza MD critical care apprised. was present and updated at the bedside. Questions were sought and answered to her satisfaction. Critical care time: 1 hour w/ >75% spent at the bedside [id number].
--- NOTE | 2017-10-27 08:17 | RAD ---
HISTORY: Pneumonia COMPARISONS: October 27, 2017 VIEWS: 1: frontal portable view of the chest at 5:51 AM FINDINGS: LINES AND TUBES: An endotracheal tube is noted with the tip overlying the trachea at the level of the clavicles. A gastric tube is noted, with the side-port in the left upper quadrant in a prepyloric position.. A left-sided chest tube is noted CARDIOMEDIASTINAL SILHOUETTE: The cardiomediastinal silhouette is normal for portable technique. PLEURA: There is minimal blunting of left costophrenic angle. LUNG PARENCHYMA: There is confluent alveolar opacification of the left mid and lower lung hernandez with patchy alveolar opacification of the left upper lung field, similar to the previous examination. ABDOMEN: The upper abdomen is clear. There is no subphrenic gas. BONES AND SOFT TISSUES: No bone or soft tissue abnormalities are noted. IMPRESSION: 1. LINES AND TUBES ABOVE. 2. SMALL LEFT PLEURAL EFFUSION. 3. DIFFUSE CONSOLIDATION OF THE LEFT LUNG, MORE PRONOUNCED WITHIN THE MID AND LOWER LUNG
--- NOTE | 2017-10-27 08:17 | PN ---
Progress Note - Progress Note Date of Service: 10/27/17 Note: INTUBATION PROCEDURE NOTE INDICATION: acute apneic respiratory failure ATTENDING PHYSICIAN: Tim Marsh MD CONSENT: The procedure was performed emergently and the permission was implied because of the emergent nature. PROCUDURE SUMMARY: My hands were washed immediately prior to the procedure. Culver precautions were practiced. 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 Integrity of endotracheal tube balloon was demonstrated. Rapid sequence intubation was conducted. The patient received 50mg succynilcholine for adequate paralysis. Cricoid pressure was maintained from time of induction agent was given to time of cuff balloon inflation. Using a Glidescope and size 8 endotracheal tube with stylet, the patient was intubated on the first attempt. The stylet was removed and cuff balloon was inflated. Appropriate endotracheal tube position was confirmed by direct visualization of vocal cord passage, fogging of the tube, CO2 colometric indicator and symmetric breath sounds. The tube was secured at 23cm at the lips. Post intubation chest x-ray confirmed appropriate placement.
[2017-10-27] MEDS ORDERED: CALCIUM GLUCONATE* 1 GM/10 ML VIAL (in Pyxis) ONE (08:53)
--- NOTE | 2017-10-27 09:12 | PN ---
Progress Note - Progress Note Date of Service: 10/27/17 Note: Progress Note - Critical Care 24 hour events: -admitted yesterday; large left loculated effusion; had chest tube placed by Dr Briggs and creamy/pus like material drained >1500cc, now serous more overnight -intubated overnight due to respiratory failure, hypoxia. -on levophed, on sedation -rapid afib overnight, given amio boluses and amio infusion -central and art lines placed by my this morning Tele: rapid afib, now in nsr Vitals: Vital Signs Temp 98.2 F 10/27/17 07:01 Pulse 151 10/27/17 07:01 Resp 20 10/27/17 06:00 BP 93/54 10/27/17 07:00 Pulse Ox 100 10/27/17 07:01 Intake & Output 10/26/17 10/27/17 10/27/17 18:59 06:59 18:59 Intake Total 3420 3630 Output Total 850 Balance 3420 2780 Weight 82 lb 8 oz 178 lb 2.136 oz Intake: IV Fluids 3300 2628 NS (0.9%) 2628 IVPB 574 NS (0.9%) 574 Medicated IV 428 CC - Amiodarone 200 CC - Norepinephrine/ 167 Levophed CC - Propofol/Diprivan 61 Oral 120 Output: Chest Tube #1 275 Urine 200 Stewart 375 O2/Vent: AC 24/580/+10/100%; sats 96%, breathing at set rate Infusions: levophed 15, propofol, amiodarone Current Medications: Acetaminophen (Tylenol Supp*) 650 mg AL Q6H PRN PRN Reason: PAIN OR TEMPERATURE Last Admin: 10/26/17 22:29 Dose: 650 mg Albuterol/Ipratropium (Duoneb (Albuterol 2.5 Mg/Ipratropium 0.5 Mg)) 1 neb INH Q4H PRN PRN Reason: SOB/WHEEZING Dextrose (D50w Syringe 50 Ml*) 25 gm IV PUSH ONCE PRN PRN Reason: FS < 60 Famotidine (Pepcid Tab*) 20 mg PO DAILY MERLIN Heparin Sodium (Porcine) (Heparin Vial(*)) 5,000 units SUBCUT Q8HR MERLIN Last Admin: 10/27/17 05:42 Dose: 5,000 units Meropenem (Merrem 1 Gm Premix(*)) 1 gm in 50 mls @ 100 mls/hr IV Q8H [facility] Last Admin: 10/27/17 03:24 Dose: 100 mls/hr Vancomycin HCl 1,000 mg/ (Sodium Chloride) 250 mls @ 166.667 mls/hr IVPB Q8H [facility] Last Admin: 10/27/17 04:02 Dose: 166.667 mls/hr Norepinephrine Bitartrate 8 mg (/ Sodium Chloride) 500 mls @ 18.75 mls/hr IVPB Q24H MERLIN; 5 MCG/MIN PRN Reason: Protocol Last Admin: 10/27/17 02:30 Dose: 18.75 mls/hr Amiodarone HCl (Nexterone 360 Mg/200 Ml Ivpremix*) 360 mg in 200 mls @ 33.333 mls/hr IV ONCE ONE PRN Reason: 1 MG/MIN Stop: 10/27/17 12:29 Last Admin: 10/27/17 06:50 Dose: 33.333 mls/hr Amiodarone HCl (Nexterone 360 Mg/200 Ml Ivpremix*) 360 mg in 200 mls @ 16.667 mls/hr IV PER RATE MERLIN; 0.5 MG/MIN PRN Reason: Protocol Stop: 10/28/17 06:29 Propofol (Diprivan*) 100 mls @ 0 mls/hr IV .(Initial Rate) MERLIN; 0 MCG/KG/MIN PRN Reason: Protocol Last Admin: 10/27/17 08:11 Dose: 37.5 mls/hr Vasopressin 200 units/ (Dextrose) 500 mls @ 6 mls/hr IVPB .(Initial Rate) MERLIN PRN Reason: 2.4 UNITS/HR Morphine Sulfate (Morphine Inj (Syringe)*) 1 mg IV Q2H PRN PRN 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 Last Admin: 10/26/17 20:55 Dose: 1 mg Pharmacy Consult (Vancomycin Per Pharmacy*) 1 note FOLLOW UP .VANC PER PHARMACY [facility] Pharmacy Profile Note (Vancomycin Trough Check) 1 note FOLLOW UP 190 ONE Stop: 10/27/17 19:01 Physical Exam: General: intubated, sedated Head: normocephalic, atraumatic HEENT: no pallor, no icterus, moist mucous membranes Neck: soft, supple, no jvd CVS: was tachycardic and irreg, now regular rate and rhythm, no murmur Resp: left sided dec air entry compared to right but no wheeze/rhonchi; left chest tube in place Abdomen: soft, nondistended, bowel sounds present Ext: pulses+, warm, no edema Skin: intact, no breakdown, no dryness Neuro: intubated, sedated Labs: Laboratory Results - last 24 hr 10/26/17 10/26/17 10/26/17 11:00 11:00 11:00 WBC RBC Hgb Hct MCV MCH MCHC RDW Plt Count MPV Neut % (Auto) Lymph % (Auto) [place] % (Auto) Eos % (Auto) Baso % (Auto) Absolute Neuts (auto) Absolute Lymphs (auto) Absolute Monos (auto) Absolute Eos (auto) Absolute Basos (auto) Absolute Nucleated RBC Immature Gran % Neutrophils % Band Neutrophils % Lymphocytes % Monocytes % Nucleated RBC % Normal RBC Morphology INR (Anticoag Therapy) 1.15 H APTT 30.9 D-Dimer, Quantitative 644 H Patient Temperature ABG pH ABG pH (Temp Correct) ABG pCO2 ABG pCO2 (Temp Corrct ABG pO2 ABG pO2 (Temp Correct ABG HCO3 ABG O2 Saturation ABG Base Excess Respiration Rate O2 Delivery Device Ventilator Type Vent Mode FiO2 Inspiratory Time PEEP Pressure Support Pressure Control EPAP IPAP BiPAP Sodium 137 Potassium 3.7 Chloride 102 Carbon Dioxide 24 Anion Gap 11 BUN 35 H Creatinine 1.19 H Est GFR ( Amer) 78.9 Est GFR (Non-Af Amer) 61.4 BUN/Creatinine Ratio 29.4 H Glucose 153 H Hemoglobin A1c Lactic Acid Calcium 9.1 Phosphorus Magnesium 2.0 Total Bilirubin 1.00 AST 25 ALT 35 Alkaline Phosphatase 164 H Total Creatine Kinase 56 CK-MB (CK-2) 15.9 H Troponin I 0.03 C-Reactive Protein 167.45 H B-Natriuretic Peptide 655 H Total Protein 7.6 Albumin 3.2 Globulin 4.4 H Albumin/Globulin Ratio 0.7 L Lipase < 10 L TSH 1.32 Fluid Source Fluid Volume Fluid Color Fluid Appearance Fluid WBC Fluid RBC Influenza A (Rapid) Influenza B (Rapid) 10/26/17 10/26/17 10/26/17 11:00 11:00 12:05 WBC 25.3 H RBC 4.27 Hgb 12.5 L Hct 38 L MCV 90 MCH 29 MCHC 33 RDW 14 Plt Count 364 MPV 9 Neut % (Auto) 87.3 H Lymph % (Auto) 5.6 L [place] % (Auto) 6.9 Eos % (Auto) 0.1 Baso % (Auto) 0.1 Absolute Neuts (auto) 22.1 H Absolute Lymphs (auto) 1.4 Absolute Monos (auto) 1.8 H Absolute Eos (auto) 0 Absolute Basos (auto) 0 Absolute Nucleated RBC 0 Immature Gran % Neutrophils % Band Neutrophils % Lymphocytes % Monocytes % Nucleated RBC % 0 Normal RBC Morphology INR (Anticoag Therapy) APTT D-Dimer, Quantitative Patient Temperature ABG pH 7.37 ABG pH (Temp Correct) ABG pCO2 37 ABG pCO2 (Temp Corrct ABG pO2 60 L ABG pO2 (Temp Correct ABG HCO3 22.0 ABG O2 Saturation 93.4 L ABG Base Excess -3.5 L Respiration Rate O2 Delivery Device Ventilator Type Vent Mode FiO2 Inspiratory Time PEEP Pressure Support Pressure Control EPAP IPAP BiPAP Sodium Potassium Chloride Carbon Dioxide Anion Gap BUN Creatinine Est GFR ( Amer) Est GFR (Non-Af Amer) BUN/Creatinine Ratio Glucose Hemoglobin A1c Lactic Acid 3.2 H* Calcium Phosphorus Magnesium Total Bilirubin AST ALT Alkaline Phosphatase Total Creatine Kinase CK-MB (CK-2) Troponin I C-Reactive Protein B-Natriuretic Peptide Total Protein Albumin Globulin Albumin/Globulin Ratio Lipase TSH Fluid Source Fluid Volume Fluid Color Fluid Appearance Fluid WBC Fluid RBC Influenza A (Rapid) Influenza B (Rapid) 10/26/17 10/26/17 10/26/17 13:47 17:30 17:30 WBC RBC Hgb Hct MCV MCH MCHC RDW Plt Count MPV Neut % (Auto) Lymph % (Auto) [place] % (Auto) Eos % (Auto) Baso % (Auto) Absolute Neuts (auto) Absolute Lymphs (auto) Absolute Monos (auto) Absolute Eos (auto) Absolute Basos (auto) Absolute Nucleated RBC Immature Gran % Neutrophils % Band Neutrophils % Lymphocytes % Monocytes % Nucleated RBC % Normal RBC Morphology INR (Anticoag Therapy) 1.17 H APTT 32.8 D-Dimer, Quantitative Patient Temperature ABG pH ABG pH (Temp Correct) ABG pCO2 ABG pCO2 (Temp Corrct ABG pO2 ABG pO2 (Temp Correct ABG HCO3 ABG O2 Saturation ABG Base Excess Respiration Rate O2 Delivery Device Ventilator Type Vent Mode FiO2 Inspiratory Time PEEP Pressure Support Pressure Control EPAP IPAP BiPAP Sodium Potassium Chloride Carbon Dioxide Anion Gap BUN Creatinine Est GFR ( Amer) Est GFR (Non-Af Amer) BUN/Creatinine Ratio Glucose Hemoglobin A1c Lactic Acid Calcium Phosphorus Magnesium Total Bilirubin AST ALT Alkaline Phosphatase Total Creatine Kinase CK-MB (CK-2) Troponin I C-Reactive Protein B-Natriuretic Peptide 259 H Total Protein Albumin Globulin Albumin/Globulin Ratio Lipase TSH Fluid Source Fluid Volume Fluid Color Fluid Appearance Fluid WBC Fluid RBC Influenza A (Rapid) Negative Influenza B (Rapid) Negative 10/26/17 10/26/17 10/26/17 18:00 20:24 20:24 WBC 25.7 H RBC 4.04 Hgb 11.8 L Hct 36 L MCV 90 MCH 29 MCHC 32 RDW 14 Plt Count 318 MPV 9 Neut % (Auto) 94.6 H Lymph % (Auto) 2.0 L [place] % (Auto) 3.2 Eos % (Auto) 0 Baso % (Auto) 0.2 Absolute Neuts (auto) 24.3 H Absolute Lymphs (auto) 0.5 L Absolute Monos (auto) 0.8 Absolute Eos (auto) 0 Absolute Basos (auto) 0 Absolute Nucleated RBC 0 Immature Gran % 10 H Neutrophils % 81 Band Neutrophils % 10 H Lymphocytes % 3 L Monocytes % 6 Nucleated RBC % 0 Normal RBC Morphology Normal INR (Anticoag Therapy) APTT D-Dimer, Quantitative Patient Temperature ABG pH ABG pH (Temp Correct) ABG pCO2 ABG pCO2 (Temp Corrct ABG pO2 ABG pO2 (Temp Correct ABG HCO3 ABG O2 Saturation ABG Base Excess Respiration Rate O2 Delivery Device Ventilator Type Vent Mode FiO2 Inspiratory Time PEEP Pressure Support Pressure Control EPAP IPAP BiPAP Sodium 139 Potassium 4.1 Chloride 110 Carbon Dioxide 22 Anion Gap 7 BUN 28 H Creatinine 0.90 Est GFR ( Amer) 108.9 Est GFR (Non-Af Amer) 84.7 BUN/Creatinine Ratio 31.1 H Glucose 162 H Hemoglobin A1c Lactic Acid Calcium 8.0 L Phosphorus Magnesium Total Bilirubin 0.70 AST 17 ALT 26 Alkaline Phosphatase 126 H Total Creatine Kinase CK-MB (CK-2) Troponin I C-Reactive Protein B-Natriuretic Peptide Total Protein 5.8 L Albumin 2.4 L Globulin 3.4 Albumin/Globulin Ratio 0.7 L Lipase TSH Fluid Source Pleural fluid Fluid Volume 5 Fluid Color Fluid Appearance Fluid WBC 202859 [place] [address] Influenza A (Rapid) Influenza B (Rapid) 10/26/17 10/27/17 10/27/17 21:00 03:20 03:20 WBC 44.5 H RBC 4.13 Hgb 12.1 L Hct 38 L MCV 93 MCH 29 MCHC 31 RDW 15 Plt Count 405 MPV 9 Neut % (Auto) Lymph % (Auto) [place] % (Auto) Eos % (Auto) Baso % (Auto) Absolute Neuts (auto) Absolute Lymphs (auto) Absolute Monos (auto) Absolute Eos (auto) Absolute Basos (auto) Absolute Nucleated RBC Immature Gran % Neutrophils % Band Neutrophils % Lymphocytes % Monocytes % Nucleated RBC % Normal RBC Morphology INR (Anticoag Therapy) APTT D-Dimer, Quantitative Patient Temperature Not Reportable ABG pH 7.27 L ABG pH (Temp Correct) Not Reportable ABG pCO2 51 H ABG pCO2 (Temp Corrct Not Reportable ABG pO2 168 H ABG pO2 (Temp Correct Not Reportable ABG HCO3 22.0 ABG O2 Saturation 100.1 H ABG Base Excess -3.8 L Respiration Rate Not Reportable O2 Delivery Device Bipap Ventilator Type Not Reportable Vent Mode Not Reportable FiO2 100 Inspiratory Time 1.1 PEEP Not Reportable Pressure Support Not Reportable Pressure Control Not Reportable EPAP 5 IPAP 10 BiPAP Not Reportable Sodium 140 Potassium 5.3 H Chloride 111 Carbon Dioxide 25 Anion Gap 4 BUN 30 H Creatinine 1.32 H Est GFR ( Amer) 70.0 Est GFR (Non-Af Amer) 54.4 BUN/Creatinine Ratio 22.7 H Glucose 169 H Hemoglobin A1c Lactic Acid Calcium 8.4 L Phosphorus 7.5 H Magnesium 1.9 Total Bilirubin AST ALT Alkaline Phosphatase Total Creatine Kinase CK-MB (CK-2) Troponin I C-Reactive Protein B-Natriuretic Peptide Total Protein Albumin Globulin Albumin/Globulin Ratio Lipase TSH Fluid Source Fluid Volume Fluid Color Fluid Appearance Fluid WBC Fluid RBC Influenza A (Rapid) Influenza B (Rapid) 10/27/17 10/27/17 10/27/17 03:20 04:42 06:34 WBC RBC Hgb Hct MCV MCH MCHC RDW Plt Count MPV Neut % (Auto) Lymph % (Auto) [place] % (Auto) Eos % (Auto) Baso % (Auto) Absolute Neuts (auto) Absolute Lymphs (auto) Absolute Monos (auto) Absolute Eos (auto) Absolute Basos (auto) Absolute Nucleated RBC Immature Gran % Neutrophils % Band Neutrophils % Lymphocytes % Monocytes % Nucleated RBC % Normal RBC Morphology INR (Anticoag Therapy) APTT D-Dimer, Quantitative Patient Temperature Not Reportable ABG pH 7.08 L* 7.13 L* ABG pH (Temp Correct) Not Reportable ABG pCO2 74 H* 61 H ABG pCO2 (Temp Corrct Not Reportable ABG pO2 144 H 143 H ABG pO2 (Temp Correct Not Reportable ABG HCO3 17.8 L 17.4 L ABG O2 Saturation 99.9 H 100.1 H ABG Base Excess -9.1 L -9.6 L Respiration Rate 24 O2 Delivery Device vent Ventilator Type 580 Vent Mode cmv FiO2 100 Inspiratory Time .9 PEEP 10 Pressure Support Not Reportable Pressure Control Not Reportable EPAP Not Reportable IPAP Not Reportable BiPAP Not Reportable Sodium Potassium Chloride Carbon Dioxide Anion Gap BUN Creatinine Est GFR ( Amer) Est GFR (Non-Af Amer) BUN/Creatinine Ratio Glucose Hemoglobin A1c 5.9 H Lactic Acid Calcium Phosphorus Magnesium Total Bilirubin AST ALT Alkaline Phosphatase Total Creatine Kinase CK-MB (CK-2) Troponin I C-Reactive Protein B-Natriuretic Peptide Total Protein Albumin Globulin Albumin/Globulin Ratio Lipase TSH Fluid Source Fluid Volume Fluid Color Fluid Appearance Fluid WBC Fluid RBC Influenza A (Rapid) Influenza B (Rapid) Imaging: cxr 10/26 - left sided consolidation lower and upper lobes cxr 10/27- left sidec chest tube+; increased left side infiltrates/consolidation Assessment: 67y M pmhx none significant. Comes to ER for complaints of 1 day of shortness of breath, progressive. No CP. Cough+, mild sputum. No fever/chills. Mild abd pain at times, no n/v/diarrhea. No rash/joint pains. States 2 weeks he has had sinus infection symptoms of runny nose, started PO abx 1 week prior but no improvement. Comes in tachypneic, tachycardic, hypoxic, rapid afib with new left sided consolidation. -Acute Hypoxic and hypercapneic respiratory failure; intubated 10/27 -left sided upper/lower pneumonia, right sided pneumonia -left sided empyema vs abscess -new onset Afib with rapid vent rate -septic shock -AYAKA -hyperkalemia Plan: Neuro- sedated on propofol, neurochecks, asp prec. CVS- was in rapid afib, now broke to NSR. cont amio infusion. on levophed for shock, add vasopressin 2.4 units, wean to keep MAP>65. check CVP from central line. Start 1/2NS infusion 100cc/hr. Monitor urine output, noted positive balance from yesterday. IV abx for pneumonia/empyema/abscess. check LA now. noted ECHO yesterday, normal LV function. Resp- intubated for hypoxic and hypercapneic failure; gas improved. repeat abg now. cxr with worsened left sided infiltrates. sputum growing gram pos organisms already. broad coverage for gram+/-/anaerobic organisms. IV abx. No wheezing, bronchodilators prn. no steroids. pleural fluid with more serous drainage now. no air leak noted, no ptx on cxr. on CMV mode, will readjust as needed. given multifocal infiltrates, will target low TV ventilation if tolerated, his ideal weight is 98kg for 6'7" man. may need steroids if CO2 still elevated after vent changes. ID- afebrile. wbc 44k. left sided diffuse consolidation and right sided patchy infiltrates on CT Chest. sputum culture pending, but gram+ growth. pleural fluid in lab now. IV merrem and vanco for broad coverage. blood negative so far. GI- npo, ogt+. tube feeds in next 24 hours. Renal- Cr 1.3, AYAKA. hyperkalemia. insulin/d50/bicarb/calcium now. repeat bmp in 3-4 hours. making some urine, positive balance. start 1/2 NS infusion 100cc/hr for now, stewart in place. no much change in metabolic acid base status. Heme- hg stable. plt okay. dvt prophy with scds and heparin sq. Endo- fingersticks as needed. Musculsk- pressure ulcer proph. bedrest. Wounds- none Nutrition- npo DVT prophylaxis: heparin sq GI prophylaxis: pepcid po Central Line: left ij 10/27 Arterial Line: right rad 10/27 Stewart Cathetor: yes Disposition: icu for resp failure, pneumonia, empyema/abscess Code Status: full code Total Critical Care time is 45 minutes, excluding procedures/teaching Savage Desouza MD Elementary Assistant Teacher (Electronically Signed)
--- NOTE | 2017-10-27 09:35 | PN ---
Progress Note - Progress Note Date of Service: 10/27/17 Note: Arterial Line Procedure Note Indication: hypotension/shock Consent was emergent - Prior labs/history was reviewed prior to procedure - Full sterile precautions with chlorhexidine/full drapes/gowns/gloves utilized - right radial artery visualized with US - Vessel accessed with return of pulsatile blood. 1 attempt was made to access vessel. A cathetor was threaded over wire into vessel. Good arterial waveform was observed on monitor. - Arterial Catheter was sutured to site - Adequate hemostasis was achieved, EBL 2 cc No immediate complications noted, patient tolerated procedure well. Dressing applied to site. Savage Desouza MD Community Service Director (electronically signed)
--- NOTE | 2017-10-27 09:36 | PN ---
Progress Note - Progress Note Date of Service: 10/27/17 Note: Central Line Procedure Note Indication: Hypotension/shock, poor vascular access Consent was emergent - Prior labs/history was reviewed prior to procedure - Full sterile precautions with chlorhexidine/full drapes/gowns/gloves utilized - left IJ vein visualized with ultrasound - Vessel accessed under ultrasound guidance with return of nonpulsatile blood. A guidewire was passed into vessel and confirmed in vessel with ultrasound. 1 attempt was made to access vessel. Vessel was dilated and cathetor was passed over wire into vessel. All ports demonstrated good blood return and flushed. Catheter was sutured to site and dressing applied Adequate hemostasis was achieved, EBL 5 cc No immediate complications noted, patient tolerated procedure well. CXR pending for confirmation Savage Desouza MD Cereal Maker (electronically signed)
[2017-10-27] MEDS: NS 0.45% 1000 ML BAG* 1,000 ML IV SCH ×2 (09:54→20:54)
[2017-10-27] MEDS: VASOPRESSIN IVPB SCH (09:55)
[2017-10-27] MEDS: NS 0.9% IVPB SCH (09:55)
[2017-10-27] MEDS: Famotidine TAB* 20 MG PO SCH (10:18)
--- NOTE | 2017-10-27 10:24 | RAD ---
HISTORY: Central line placement COMPARISONS: October 27, 2017 at 5:51 AM VIEWS: 1: frontal portable view of the chest at 9:26 AM FINDINGS: LINES AND TUBES: An endotracheal tube is noted with the tip overlying the trachea between the level of the clavicles. A gastric tube is noted, with the side-port in the left upper quadrant in a prepyloric position.. A left internal jugular venous catheter is noted with the tip overlying the superior vena cava. A left-sided chest tube is noted. CARDIOMEDIASTINAL SILHOUETTE: The cardiomediastinal silhouette is normal for portable technique. PLEURA: There is blunting of left costophrenic angle. LUNG PARENCHYMA: There is persistent confluent alveolar opacification of the left lung ABDOMEN: The upper abdomen is clear. There is no subphrenic gas. BONES AND SOFT TISSUES: No bone or soft tissue abnormalities are noted. IMPRESSION: 1. LINES AND TUBES ABOVE. 2. PERSISTENT LEFT LUNG CONSOLIDATION.
[2017-10-27] MEDS ORDERED: cefTRIAXone(*) 2 GM in NS 0.9% 100 ML* 100 ML IVPB SCH (12:00)
[2017-10-27] MEDS ORDERED: Azithromycin IV(*) 500 MG in NS 0.9% 250 ML* 250 ML IVPB SCH (12:00)
[2017-10-27] MEDS: AMIODARONE IV SCH (12:44)
[2017-10-27 13:03] LABS: Urine Appearance Turbid; Urine Blood 1+ (Negative); Urine Color Amber; Urine Ketones Negative (Negative); Urine Protein 1+(30 mg/dL) (Negative); Urine Specific Gravity 1.043 (1.010-1.030); Urine Urobilinogen Positive (Negative)
[2017-10-27 15:05] LABS: EGFR Non-African American 56.9 (>60)
[2017-10-27] MEDS ORDERED: Midazolam* 1 MG/ML 2 ML VIAL (2 MG) IV PRN (17:30)
[2017-10-27] MEDS ORDERED: fentaNYL* 50 MCG/ML 2 ML VIAL (100 MCG VIAL) IV SLOW PU PRN (17:30)
[2017-10-27] MEDS ORDERED: Vancomycin Trough Check NOTE FOLLOW UP ONE (19:00)
[2017-10-28] MEDS: Meropenem 1 GM PREMIX(*) 1 GM/50 ML BAG IV SCH (02:37)
[2017-10-28] MEDS: AMIODARONE IV SCH (02:37)
[2017-10-28] MEDS: NS 0.9% IVPB SCH ×2 (03:28→17:29)
[2017-10-28] MEDS: VASOPRESSIN IVPB SCH ×2 (03:28→17:29)
[2017-10-28] MEDS: Vancomycin(*) 1,000 MG in NS 0.9% 250 ML* 250 ML IVPB SCH (03:28)
[2017-10-28] MEDS: NS 0.45% 1000 ML BAG* 1,000 ML IV SCH (06:12)
[2017-10-28 06:46] LABS: Hematocrit 32 % (42-52); Hemoglobin 10.6 g/dl (14.0-18.0); Mean Corpuscular HGB Conc 33 g/dl (31-36); Mean Corpuscular Hemoglobin 30 pg (27-31); Mean Corpuscular Volume 90 fL (80-94); Mean Platelet Volume 9 um3 (7.4-10.4); Platelet Count 298 10^3/ul (150-450); Red Blood Count 3.57 10^6/ul (4.0-5.4); Red Cell Distribution Width 14 % (10.5-15); White Blood Count 33.1 10^3/ul (3.5-10.8)
[2017-10-28 06:59] LABS: EGFR Non-African American 57.4 (>60)
[2017-10-28] MEDS: Heparin VIAL(*) 5000 UNITS/ML VIAL (FIVE THOUSAND) SUBCUT SCH ×2 (07:13→15:57)
[2017-10-28] MEDS: Propofol* 1000 MG (10 MG/ML 100 ml) @ Per Protocol (in ICU Pyxis) IV SCH ×4 (07:13→21:14)
--- NOTE | 2017-10-28 08:52 | RAD ---
Indication: Follow-up pneumonia. Single frontal view of the chest performed at 0607 hours was reviewed. Comparison is made with previous exam dated October 27, 2017. No mediastinal shift is noted. Heart is of normal size and configuration. Left lower lobe airspace disease is noted with chronic changes in the left IMPRESSION: LEFT LOWER LOBE INFILTRATE ESSENTIALLY UNCHANGED FROM OCTOBER 27, 2017.
[2017-10-28] MEDS: Norepinephrine VIAL* 8 MG in NS 0.9% 500 ML* 492 ML IVPB SCH ×2 (09:48→19:16)
[2017-10-28] MEDS: Famotidine TAB* 20 MG PO SCH (10:21)
[2017-10-28] MEDS ORDERED: cefTRIAXone(*) 2 GM in NS 0.9% 100 ML* 100 ML IVPB SCH (11:00)
[2017-10-28] MEDS ORDERED: Iodixanol* (CONTRAST) 320 MG/ML 100 ML SDV IV ONE (11:23)
[2017-10-28] MEDS ORDERED: Clindamycin 600 MG IVPREMIX(* 600 MG/50 ML SDV IV SCH (11:30)
--- NOTE | 2017-10-28 12:38 | PN ---
Progress Note - Progress Note Date of Service: 10/28/17 Note: CRITICAL CARE MEDICINE Date: 10/28/17 Time: 1015 SUBJECTIVE: Patient seen and examined. PHYSICAL EXAM: Vital Signs: Reviewed. Neurologic: sedated on vent. mays HEENT: pupils equal. Sclera anicteric. Trachea midline. Cardiovascular: S1 S2 Respiratory: dec on left; ct in place, no leak Abdomen: Soft, nt. No r/g/r. Extremities: Warm. LABS: Reviewed. IMAGING: Reviewed. MEDICATIONS: Reviewed. ASSESSMENT: 67 M Acute hypoxic and hypercarbic resp failure Severe sepsis sec to emphyema Left Emphyema paf sec to sepsis - resolved AYAKA vs stage 3 dz chronically - stable PLAN: Neurologic: keep sedated today. pain control. Cardiovascular: perfusing. vol status up some. can dc ivf. Respiratory: tolerating and vent adjusted. check ct with today to see if tpa instillation or vats to be needed. Gastrointestinal: tf adjusted. sup Renal/Metabolic: stewart for now. off maintence fluids although can have fluid with contrast today Infectious Disease: strept int in cx - can change to C3 and clinda for longer term abx needs Hematology: stable. hsq Endocrine: stable. Musculoskeletal: bedrest currently. avoid deconditioing Psych/Social: son at bedside updated Supportive and preventative care as ordered. SUP: H2 VTE prophylaxis: heparin Stewart catheter given critical illness, monitoring needs for accurate assessment of AYAKA and KDIGO criteria for critically ill patients and to avoid potential harms of urinary retention, skin breakdown/ulcers. Disposition: ICU Code Status: Full Critical Care Time: 35min Vlad Muse DO
--- NOTE | 2017-10-28 14:48 | RAD ---
INDICATION: [id number] COMPARISON: CT chest October 26, 2017 TECHNIQUE: Axial source images were obtained from the thoracic inlet to the hemidiaphragms. Coronal and sagittal reconstructed images were acquired. 80 mL of Visipaque recoil was utilized The visualized neck to include the thyroid appear normal. Chest wall: There are no acute abnormalities of the bony thorax or chest wall. There is no supraclavicular, infraclavicular, or axillary lymphadenopathy. Lungs : The largest localized fluid collection which by history represented an empyema has largely resolved post intervention. There is persistent airspace disease in the left lung base. There is underlying interstitial lung disease/emphysema. There are bronchiectatic changes in left lung base of mucous plugging. Cardiomediastinal structures: The heart is normal in size. There is no pericardial effusion. There is no evidence of aortic aneurysm or dissection. The pulmonary vessels appear normal. There is no mediastinal or hilar adenopathy. The esophagus appears normal. Pleura : Trace left-sided effusion. Other: There is endotracheal intubation. A nasogastric tube passes normally through the mediastinum and terminates in the stomach. There is a large caliber left-sided chest tube directed towards the lung apex. IMPRESSION: LEFT-SIDED EMPYEMA HAS BEEN EFFECTIVELY TREATED BY THE LARGE CALIBER CHEST TUBE. THERE IS RESIDUAL AIRSPACE DISEASE LEFT LUNG BASE IN ADDITION TO CHRONIC CHANGES TO INCLUDE EMPHYSEMATOUS CHANGES AND BRONCHIECTATIC CHANGES LEFT LUNG BASE WITH MUCOUS PLUGGING.
[2017-10-28] MEDS: Nicotine PATCH 14 MG/24 HR* PATCH TRANSDERM SCH (15:38)
[2017-10-28] MEDS: Clindamycin 600 MG IVPREMIX(* 600 MG/50 ML SDV IV SCH (15:53)
--- NOTE | 2017-10-28 16:05 | PN ---
Progress Note - Progress Note Date of Service: 10/28/17 SOAP: Subjective: Pt seen and examined. Remains intubated and sedated, and on pressor. Case d/w CCM. Decreased drainage via L chest tube. Objective: Af Tm 99.3 chest tube serous ouput, no airleak CT chest: reviewed, resolution of pleural collection; ? mucous plugging Assessment: L empyema, Sepsis Plan: Continue chest tube while intubated. recommend bronchoscopy if no improvment. Will follow OLLIE to cover me until 11/07/17
[2017-10-28] MEDS: cefTRIAXone(*) 2 GM in NS 0.9% 100 ML* 100 ML IVPB SCH (17:02)
[2017-10-28] MEDS: Nicotine Patch Removal NOTE PATCH OFF SCH (23:00)
[2017-10-29] MEDS: Clindamycin 600 MG IVPREMIX(* 600 MG/50 ML SDV IV SCH ×3 (00:13→16:19)
[2017-10-29] MEDS: Heparin VIAL(*) 5000 UNITS/ML VIAL (FIVE THOUSAND) SUBCUT SCH ×4 (00:16→22:14)
--- NOTE | 2017-10-29 01:09 | PRO ---
CC: [facility]; Dr. Paramjit George; Dr. Savage Desouza * PROCEDURE REPORT AND CONSULTATION: DATE OF PROCEDURE: 10/26/17 - ROOM #ICU-08 REASON FOR CONSULT/INDICATIONS: I was contacted by the critical care team to evaluate Mr. Magallon, a 67-year-old gentleman, who was admitted to the ICU with diagnoses of pneumonia and hypoxia. He was noted on CT scan to have a large left- sided pleural effusion that was noted to be loculated. I evaluated the patient who was short of breath on Ventimask with normal vitals. The patient had been treated for pneumonia, was having difficulty lying down. CT scan was profound and I discussed with the patient the need for drainage of this fluid collection both for diagnostic and therapeutic purposes. I outlined the details of the procedure going over the risks, benefits, and alternatives, and the patient and the patient's agreed. We spoke about the possible complications which included but not limited to bleeding, infection, need for additional procedures, need for surgical intervention, prolonged hospitalization , and even . With consent signed, the patient was placed in the supine position. DESCRIPTION OF PROCEDURE: The left lateral chest was prepped and draped sterilely. We injected lidocaine for local block after a time-out was performed and deepened our incision down to just over the fourth intercostal space. Entry into the chest wall was done bluntly with large Ev clamp and copious foul-smelling pus was encountered. A 32-[place] tube was then inserted and directed superiorly and approximately 1600 cc of foul-smelling pus was drained into a Pleur-evac. The tubing was sutured to the skin with 0 Surgipro suture followed by dressing. The patient was then brought back up again and we washed as the drainage increased. Cultures were sent and the patient was passed back on to the critical care team after tolerating the procedure. [id number]/[facility] #: [id number] MTDD
[2017-10-29] MEDS: Norepinephrine VIAL* 8 MG in NS 0.9% 500 ML* 492 ML IVPB SCH ×3 (04:08→21:49)
[2017-10-29] MEDS: Propofol* 1000 MG (10 MG/ML 100 ml) @ Per Protocol (in ICU Pyxis) IV SCH (04:45)
[2017-10-29 05:23] LABS: Hematocrit 32 % (42-52); Hemoglobin 10.5 g/dl (14.0-18.0); Mean Corpuscular HGB Conc 32 g/dl (31-36); Mean Corpuscular Hemoglobin 29 pg (27-31); Mean Corpuscular Volume 91 fL (80-94); Mean Platelet Volume 9 um3 (7.4-10.4); Platelet Count 276 10^3/ul (150-450); Red Blood Count 3.57 10^6/ul (4.0-5.4); Red Cell Distribution Width 15 % (10.5-15); White Blood Count 36.8 10^3/ul (3.5-10.8)
[2017-10-29 05:37] LABS: EGFR Non-African American 41.2 (>60)
[2017-10-29] MEDS: Chlorhexidine MOUTHWASH 0.12%* 15 ML UDC TOPICAL SCH ×4 (08:09→19:28)
[2017-10-29] MEDS: Nicotine PATCH 14 MG/24 HR* PATCH TRANSDERM SCH (08:09)
[2017-10-29] MEDS ORDERED: fentaNYL* 50 MCG/ML 2 ML VIAL (100 MCG VIAL) ONE (09:57)
[2017-10-29] MEDS ORDERED: fentaNYL* 50 MCG/ML 2 ML VIAL (100 MCG VIAL) IV SLOW PU ONE (10:16)
[2017-10-29] MEDS: Famotidine TAB* 20 MG PO SCH (10:34)
--- NOTE | 2017-10-29 11:55 | PN ---
Progress Note - Progress Note Date of Service: 10/29/17 Note: CRITICAL CARE MEDICINE Date: 10/29/17 Time: 1045 SUBJECTIVE: Patient seen and examined. PHYSICAL EXAM: Vital Signs: Reviewed. Neurologic: off prop and slow to come around. HEENT: pupils equal. Sclera anicteric. Trachea midline. Cardiovascular: S1 S2 Respiratory: dec with poor trigger; ct in place, no leak Abdomen: Soft, nt. No r/g/r. Extremities: Warm. LABS: Reviewed. IMAGING: Reviewed. MEDICATIONS: Reviewed. ASSESSMENT: 67 M Acute hypoxic and hypercarbic resp failure Severe sepsis sec to emphyema Left Emphyema paf sec to sepsis - resolved AYAKA vs stage 3 dz chronically - stable PLAN: Neurologic: sedation vacation. pain control. Cardiovascular: perfusing. vol status up some. can dc ivf. Respiratory: tolerating and vent adjusted to see if weanable off. slow going. keep ct. Gastrointestinal: tf.. sup Renal/Metabolic: stewart for now. off fluids. Infectious Disease: strept int in cx - can change to C3 and clinda. no tpa or vats needs Hematology: stable. hsq Endocrine: stable. Musculoskeletal: bedrest currently. avoid deconditioing Psych/Social: will update family Supportive and preventative care as ordered. SUP: H2 VTE prophylaxis: heparin Stewart catheter given critical illness, monitoring needs for accurate assessment of AYAKA and KDIGO criteria for critically ill patients and to avoid potential harms of urinary retention, skin breakdown/ulcers. Disposition: ICU Code Status: Full Critical Care Time: 35min Vlad Muse DO
[2017-10-29] MEDS: VASOPRESSIN IVPB SCH (12:56)
[2017-10-29] MEDS: NS 0.9% IVPB SCH (12:56)
[2017-10-29] MEDS: methylPREDNISolone SOD 40 MG* 1 ML VIAL IV SCH ×2 (16:19→22:14)
[2017-10-29] MEDS: cefTRIAXone(*) 2 GM in NS 0.9% 100 ML* 100 ML IVPB SCH (17:16)
[2017-10-29] MEDS: fentaNYL* 50 MCG/ML 2 ML VIAL (100 MCG VIAL) IV SLOW PU PRN ×3 (18:04→21:44)
--- NOTE | 2017-10-29 21:58 | PN ---
Progress Note - Progress Note Date of Service: 10/29/17 Note: Nursing reporting patient more awake, agitated, reaching for ET tube. Restart propofol @5, titrate to RASS -1.
[2017-10-29] MEDS: Propofol* 100 ML IV SCH (22:17)
[2017-10-29] MEDS: Nicotine Patch Removal NOTE PATCH OFF SCH (22:34)
[2017-10-30] MEDS: fentaNYL* 50 MCG/ML 2 ML VIAL (100 MCG VIAL) IV SLOW PU PRN ×4 (00:17→10:58)
[2017-10-30] MEDS: Clindamycin 600 MG IVPREMIX(* 600 MG/50 ML SDV IV SCH ×4 (00:19→23:42)
[2017-10-30] MEDS: Chlorhexidine MOUTHWASH 0.12%* 15 ML UDC TOPICAL SCH ×7 (00:26→23:41)
[2017-10-30] MEDS: Norepinephrine VIAL* 8 MG in NS 0.9% 500 ML* 492 ML IVPB SCH (04:10)
[2017-10-30] MEDS: Heparin VIAL(*) 5000 UNITS/ML VIAL (FIVE THOUSAND) SUBCUT SCH ×3 (05:48→21:38)
[2017-10-30 05:59] LABS: Hematocrit 27 % (42-52); Hemoglobin 8.9 g/dl (14.0-18.0); Mean Corpuscular HGB Conc 33 g/dl (31-36); Mean Corpuscular Hemoglobin 29 pg (27-31); Mean Corpuscular Volume 90 fL (80-94); Mean Platelet Volume 9 um3 (7.4-10.4); Platelet Count 182 10^3/ul (150-450); Red Blood Count 3.03 10^6/ul (4.0-5.4); Red Cell Distribution Width 15 % (10.5-15); White Blood Count 19.6 10^3/ul (3.5-10.8)
[2017-10-30 06:10] LABS: EGFR Non-African American 55.9 (>60)
[2017-10-30] MEDS: methylPREDNISolone SOD 40 MG* 1 ML VIAL IV SCH ×3 (07:52→22:47)
[2017-10-30] MEDS: Famotidine TAB* 20 MG PO SCH (08:20)
[2017-10-30] MEDS: Nicotine PATCH 14 MG/24 HR* PATCH TRANSDERM SCH (08:25)
--- NOTE | 2017-10-30 10:22 | PN ---
Progress Note - Progress Note Date of Service: 10/30/17 Note: CRITICAL CARE MEDICINE Date: 10/30/17 Time: 935 SUBJECTIVE: Patient seen and examined. son at bedside. PHYSICAL EXAM: Vital Signs: Reviewed. Neurologic: off prop again today. f/u exam as not able to follow commands but mays HEENT: pupils equal. Sclera anicteric. Trachea midline. Cardiovascular: S1 S2 Respiratory: dec but holding on p-cmv Abdomen: Soft, nt. No r/g/r. Extremities: Warm. LABS: Reviewed. IMAGING: Reviewed. MEDICATIONS: Reviewed. ASSESSMENT: 67 M Acute hypoxic and hypercarbic resp failure Severe sepsis sec to emphysema Left Emphyema paf sec to sepsis - resolved AYAKA vs stage 3 dz chronically - stable Mutifactorial encephalopathy PLAN: Neurologic: sedation vacation. pain control prn. f/u encephalpathy Cardiovascular: perfusing. vol status up some but off ivf and tolerable. Respiratory: vent as is for now and cpap later when mentation better. chest tube stable. Gastrointestinal: tf. sup Renal/Metabolic: stewart. lytes ok. Infectious Disease: C3 and clinda. Hematology: stable. hsq Endocrine: stable. Musculoskeletal: bedrest currently. avoid deconditioing Psych/Social: son updated Supportive and preventative care as ordered. SUP: H2 VTE prophylaxis: heparin Stewart catheter given critical illness, monitoring needs for accurate assessment of AYAKA and KDIGO criteria for critically ill patients and to avoid potential harms of urinary retention, skin breakdown/ulcers. Disposition: ICU Code Status: Full Critical Care Time: 35min FAlec Muse DO
[2017-10-30] MEDS ORDERED: Furosemide IV* 10 MG/ML VIAL (40 MG) IV SLOW PU ONE (11:16)
--- NOTE | 2017-10-30 11:20 | PN ---
Progress Note - Progress Note Date of Service: 10/30/17 Note: CRITICAL CARE MEDICINE Date: 10/30/17 Time: 1100 Pt with desat and new air leak. cxr with ct still in place. no obvious ptx, but perhaps a small ant pocket. Lungs aeration better. continued vent. mobilize fluid. keep ct to suction. off prop and still very slow to animate. degree of hypoxic encephalopathy remains. time. Critical Care Time: 10min Vlad Muse,
[2017-10-30] MEDS: Propofol* 100 ML IV SCH ×2 (12:32→17:35)
--- NOTE | 2017-10-30 12:43 | RAD ---
Indication: Chest tube, air leak. Single frontal view of the chest performed at 1055 hours was reviewed. Comparison is made with previous exam dated October 28, 2017. Interstitial edema is noted. Left chest tube remains in place. Bibasilar atelectasis and infiltrate is noted. ET tube is in the level of T2-T3. Central line is in place. Overall no changes noted since prior exam. IMPRESSION: LEFT CHEST TUBE IN PLACE. NO CHANGES NOTED SINCE OCTOBER 28, 2017.
[2017-10-30] MEDS: Insulin REGULAR(*) 1 UNITS UNIT SUBCUT SCH ×3 (12:57→23:41)
[2017-10-30] MEDS: cefTRIAXone(*) 2 GM in NS 0.9% 100 ML* 100 ML IVPB SCH (16:19)
[2017-10-30] MEDS: Nicotine Patch Removal NOTE PATCH OFF SCH (21:23)
[2017-10-31] MEDS: Propofol* 100 ML IV SCH ×5 (01:23→20:37)
[2017-10-31] MEDS: Chlorhexidine MOUTHWASH 0.12%* 15 ML UDC TOPICAL SCH ×5 (03:25→20:28)
[2017-10-31] MEDS: Norepinephrine VIAL* 8 MG in NS 0.9% 500 ML* 492 ML IVPB SCH (03:26)
[2017-10-31] MEDS: methylPREDNISolone SOD 40 MG* 1 ML VIAL IV SCH ×2 (05:37→08:33)
[2017-10-31] MEDS: Heparin VIAL(*) 5000 UNITS/ML VIAL (FIVE THOUSAND) SUBCUT SCH ×3 (05:37→21:53)
[2017-10-31 05:53] LABS: INR 0.98 (0.77-1.02)
[2017-10-31 05:54] LABS: ABS Basophils 0 10^3/ul (0-0.2); ABS Eosinophils 0 10^3/ul (0-0.6); ABS Lymphocytes 0.7 10^3/ul (1.0-4.8); ABS Monocytes 0.6 10^3/ul (0-0.8); ABS Neutrophils 13.4 10^3/ul (1.5-7.7); ABS Nucleated RBC 0.03 10^3/ul; Eosinophil % 0 % (0-6); Hematocrit 26 % (42-52); Hemoglobin 8.6 g/dl (14.0-18.0); Lymphocyte % 4.7 % (25-47); Mean Corpuscular HGB Conc 33 g/dl (31-36); Mean Corpuscular Hemoglobin 29 pg (27-31); Mean Corpuscular Volume 89 fL (80-94); Mean Platelet Volume 9 um3 (7.4-10.4); Nucleated Red Blood Cells % 0.2; Platelet Count 190 10^3/ul (150-450); Red Blood Count 2.92 10^6/ul (4.0-5.4); Red Cell Distribution Width 15 % (10.5-15); White Blood Count 14.7 10^3/ul (3.5-10.8)
[2017-10-31 06:04] LABS: EGFR Non-African American 70.1 (>60)
[2017-10-31] MEDS: Insulin REGULAR(*) 1 UNITS UNIT SUBCUT SCH ×3 (06:30→17:44)
[2017-10-31] MEDS: Clindamycin 600 MG IVPREMIX(* 600 MG/50 ML SDV IV SCH ×2 (08:13→16:37)
[2017-10-31] MEDS: Famotidine TAB* 20 MG PO SCH (08:17)
[2017-10-31] MEDS: fentaNYL* 50 MCG/ML 2 ML VIAL (100 MCG VIAL) IV SLOW PU PRN ×3 (08:29→13:55)
[2017-10-31] MEDS: Nicotine PATCH 14 MG/24 HR* PATCH TRANSDERM SCH (08:58)
[2017-10-31] MEDS ORDERED: methylPREDNISolone SOD 40 MG* 1 ML VIAL IV SCH (09:00)
[2017-10-31] MEDS ORDERED: Furosemide IV* 10 MG/ML VIAL (40 MG) IV SLOW PU ONE (09:00)
--- NOTE | 2017-10-31 11:47 | PN ---
Progress Note - Progress Note Date of Service: 10/31/17 Note: CRITICAL CARE MEDICINE Date: 10/31/17 Time: 935 SUBJECTIVE: Patient seen and examined. PHYSICAL EXAM: Vital Signs: Reviewed. Neurologic: off prop again today to see if any better communication HEENT: pupils equal. Sclera anicteric. Trachea midline. Cardiovascular: S1 S2 Respiratory: dec - cpap trial. Abdomen: Soft, nt. No r/g/r. Extremities: Warm. LABS: Reviewed. IMAGING: Reviewed. MEDICATIONS: Reviewed. ASSESSMENT: 67 M Acute hypoxic and hypercarbic resp failure Severe sepsis sec to emphysema Left Emphyema paf sec to sepsis - resolved AYAKA vs stage 3 dz chronically - stable Mutifactorial encephalopathy PLAN: Neurologic: sedation vacation. encephalpathy still lingering. sedation vacation and if lacking communication still will obtain CT (As he did have afib too on presentation) for potential hypoxic insult, and then perhaps mri needs if further time required. Cardiovascular: perfusing. vol status up some and on lasix. Respiratory: cpap trial but needs better neuro function to get towards liberation attempt. Gastrointestinal: tf. sup Renal/Metabolic: stewart. lytes ok. Infectious Disease: C3 and clinda. Hematology: stable. hsq Endocrine: stable. Musculoskeletal: bedrest currently. deconditioning ongoing Psych/Social: will look to update family Supportive and preventative care as ordered. SUP: H2 VTE prophylaxis: heparin Stewart catheter given critical illness, monitoring needs for accurate assessment of AYAKA and KDIGO criteria for critically ill patients and to avoid potential harms of urinary retention, skin breakdown/ulcers. Disposition: ICU Code Status: Full Critical Care Time: 35min Vlad Muse DO
[2017-10-31] MEDS ORDERED: Insulin GLARGINE(*) 1 UNITS UNIT SUBCUT ONE (12:03)
--- NOTE | 2017-10-31 13:00 | RAD ---
INDICATION: Encephalopathy, poor left arm movement. COMPARISON: There are no prior studies available for comparison. TECHNIQUE: Contiguous axial sections of the brain were obtained from the skull base to the vertex without contrast. FINDINGS: The ventricles and sulci are mildly prominent consistent with diffuse volume loss. There is a focal moderate size area of decreased attenuation involving the cortex and subcortical white matter in the right posterior parietal and temporal lobes. There is localized mass effect with effacement of the adjacent sulci most consistent with a subacute nonhemorrhagic infarct. No other focal abnormalities are seen. No significant focal osseous abnormality is seen. The visualized portion of the paranasal sinuses and mastoid air cells appear clear. The results of this exam were called to the referring clinician. IMPRESSION: FINDINGS MOST CONSISTENT WITH A MODERATE-SIZED NONHEMORRHAGIC INFARCT IN THE RIGHT POSTERIOR TEMPORAL AND PARIETAL LOBES. RECOMMEND CLINICAL CORRELATION.
[2017-10-31] MEDS: Aspirin Low Dose CHEW TAB* 81 MG G TUBE SCH (14:49)
[2017-10-31] MEDS: Atorvastatin* 40 MG TAB G TUBE SCH (16:40)
[2017-10-31] MEDS: cefTRIAXone(*) 2 GM in NS 0.9% 100 ML* 100 ML IVPB SCH (17:02)
[2017-10-31] MEDS: Nicotine Patch Removal NOTE PATCH OFF SCH (21:53)
[2017-11-01] MEDS: Clindamycin 600 MG IVPREMIX(* 600 MG/50 ML SDV IV SCH ×3 (00:43→16:02)
[2017-11-01] MEDS: Insulin REGULAR(*) 1 UNITS UNIT SUBCUT SCH ×4 (00:43→17:23)
[2017-11-01] MEDS: Chlorhexidine MOUTHWASH 0.12%* 15 ML UDC TOPICAL SCH ×7 (00:43→23:38)
[2017-11-01] MEDS: Propofol* 100 ML IV SCH ×4 (02:21→21:28)
[2017-11-01] MEDS: Norepinephrine VIAL* 8 MG in NS 0.9% 500 ML* 492 ML IVPB SCH (03:27)
[2017-11-01] MEDS: Heparin VIAL(*) 5000 UNITS/ML VIAL (FIVE THOUSAND) SUBCUT SCH ×3 (05:18→22:41)
[2017-11-01 05:49] LABS: ABS Basophils 0.1 10^3/ul (0-0.2); ABS Eosinophils 0 10^3/ul (0-0.6); ABS Lymphocytes 1.6 10^3/ul (1.0-4.8); ABS Monocytes 1.2 10^3/ul (0-0.8); ABS Nucleated RBC 0.01 10^3/ul; Eosinophil % 0.2 % (0-6); Hematocrit 27 % (42-52); Hemoglobin 9.1 g/dl (14.0-18.0); Lymphocyte % 9.1 % (25-47); Mean Corpuscular HGB Conc 33 g/dl (31-36); Mean Corpuscular Hemoglobin 29 pg (27-31); Mean Corpuscular Volume 88 fL (80-94); Mean Platelet Volume 9 um3 (7.4-10.4); Nucleated Red Blood Cells % 0; Platelet Count 225 10^3/ul (150-450); Red Blood Count 3.09 10^6/ul (4.0-5.4); Red Cell Distribution Width 15 % (10.5-15); White Blood Count 17.9 10^3/ul (3.5-10.8)
[2017-11-01 05:50] LABS: EGFR Non-African American 67.9 (>60)
[2017-11-01] MEDS: methylPREDNISolone SOD 40 MG* 1 ML VIAL IV SCH (09:11)
[2017-11-01] MEDS: Nicotine PATCH 14 MG/24 HR* PATCH TRANSDERM SCH (09:12)
--- NOTE | 2017-11-01 11:37 | PN ---
Progress Note - Progress Note Date of Service: 11/01/17 Note: CRITICAL CARE MEDICINE Date: 11/01/17 Time: 935 SUBJECTIVE: Patient seen and examined. family at bedside. PHYSICAL EXAM: Vital Signs: Reviewed. Neurologic: off prop again with same eyes open and movement with dec left arm but noncommunicative. HEENT: pupils equal. Sclera anicteric. Trachea midline. Cardiovascular: S1 S2 Respiratory: cmv- distant. Abdomen: Soft, nt. No r/g/r. Extremities: Warm. LABS: Reviewed. IMAGING: Reviewed. MEDICATIONS: Reviewed. ASSESSMENT: 67 M Acute hypoxic and hypercarbic resp failure Severe sepsis sec to emphysema Left Emphyema paf sec to sepsis - resolved AYAKA vs stage 3 dz chronically - stable Right parietal CVA Mutifactorial/hypoxic encephalopathy Minimally conscious state PLAN: Neurologic: sedation off again. eval for alternatives. encephalpathy still bad with subacute R parietal cva noted- potenital NCSE and can eval with eeg. stroke workup. was question of thrombus on tte and would eval for sure with JAMAR to eval for full anticoag needs, timing, and prognosis. D/w family the potential hypoxic insult as he remains in MCS and can also look to obtain MRI late today or moreso tomorrow. Cardiovascular: perfusing. vol status holding. Respiratory: liberation ability still hindered but poor lung function but moreso mcs. vent protection. chest tube remains for now but can be on h20 seal. Gastrointestinal: tf. sup Renal/Metabolic: stewart. lytes ok. Infectious Disease: C3 and clinda. Hematology: stable. hsq Endocrine: stable. Musculoskeletal: bedrest currently given condition. deconditioning ongoing Psych/Social: family updated at length Supportive and preventative care as ordered. SUP: H2 VTE prophylaxis: heparin Stewart catheter given critical illness, monitoring needs for accurate assessment of AYAKA and KDIGO criteria for critically ill patients and to avoid potential harms of urinary retention, skin breakdown/ulcers. Disposition: ICU Code Status: Full presently Critical Care Time: 35min Vlad Muse DO
[2017-11-01] MEDS ORDERED: fentaNYL* 50 MCG/ML 2 ML VIAL (100 MCG VIAL) ONE (12:31)
--- NOTE | 2017-11-01 14:56 | TEE ---
Patient: DANIELLA SAWANT [facility] Rec#: [id number] : 1950 Date: 11/01/2017 Age: 67y Height: 205.74 cm / 81.0 in Weight: 92.53 kg / 203.9 lbs Sex: M BSA: 2.34 Room#: [facility] Type: Inpatient Referring: Rob Muse Performing: Alvin Mason MD Reading: Alvin Mason MD Welder Machine Operator: Kristina Zepeda RDCS Nurse: Marine Talbert CC: Paramjit George MD Transesophageal Echocardiogram Indication: CVA and PAF BP: 160/69 HR: 87 Rhythm: NSR Findings History: Smoker, a-fib, shortness of breath, and current left chest tube. The patient was intubated and ventilated during the procedure. Technical Comments: The study quality is good. Left Ventricle: The left ventricular chamber size is normal. Global left ventricular wall motion and contractility are within normal limits. There is normal left ventricular systolic function. The estimated ejection fraction is greater than 65%. No thrombus is visualized within the left ventricle.The apex was well visualized in multiple views. Left Atrium: The left atrium is mildly dilated. The left atrial appendage velocity is normal. No thrombus is visualized within the left atrium. There is no thrombus visualized in the left atrial appendage. Right Ventricle: The right ventricular cavity size is normal. The right ventricular global systolic function is low normal. Right Atrium: The right atrium is moderately dilated. Interatrial septum appears intact without evidence of shunting. The bubble study is negative. A patent foramen ovale is not demonstrated with color Doppler and agitated contrast. Aortic Valve: The aortic valve is trileaflet. The aortic valve leaflets are mildly thickened. There is no evidence of aortic regurgitation. There is no evidence of aortic stenosis. Mitral Valve: There is mitral annular calcification. The mitral valve leaflets are mildly thickened. There is a trace of mitral regurgitation. There is no evidence of mitral stenosis. Tricuspid Valve: The tricuspid valve leaflets are normal. There is mild tricuspid regurgitation. The right ventricular systolic pressure is estimated at 44 mmHg. There is evidence of mild to moderate pulmonary hypertension. There is no tricuspid stenosis. Pulmonic Valve: The pulmonic valve appears normal. There is no evidence of pulmonic regurgitation. There is no pulmonic stenosis. Pericardium: There is no significant pericardial effusion. Aorta: There is mild dilatation of the ascending aorta. There is no dilation of the aortic root. There is plaque visualized in the transverse aorta. There is mild atherosclerotic plaque in the visualized segments of the aorta. There is plaque visualized in the descending aorta. Pulmonary Artery: The main pulmonary artery appears normal. Venous: The bicaval view was obtained and appears normal. The pulmonary veins appear normal in size. 1 of 4 visualized. The flow pattern of the pulmonary veins appear normal. JAMAR Procedures: All standard views were attempted within the limitations of patient tolerance and safety. The patient was placed in an upright position. The patient was placed in the supine position. The patient received IV Fentanyl with a total dose of 50 mcg. The patient receved IV Propofol with a total dose of 40 mcg under the supervision of Dr. Rob Muse. An oral bite block was inserted for protection of oral dentition. The multiplane transesophageal echocardiogram probe was inserted through the posterior oropharynx and advanced into the esophagus without difficulty. Dr. Muse assisted with the probe placement. He facilitated placement of the probe by repositioning the ETT/ETT clamp which allowed passage of the probe under glide scope visualization. Multiple 2D images were obtained of the heart and its related structures. Color flow Doppler was used for evaluation. Spectral Doppler was also used. The atrial septum was interrogated with color flow Doppler. At the conclusion of the procedure the probe was removed with continuous suction without complications. The patient tolerated the procedure with no apparent complications. Contrast: Normal saline was used as contrast for the bubble study. Image 65. Intravenous contrast was used to help determine presence of intracardiac shunting. Conclusions The estimated ejection fraction is greater than 65%. No thrombus is visualized within the left ventricle.The apex was well visualized in multiple views. The left atrium is mildly dilated. No thrombus is visualized within the left atrium. There is no thrombus visualized in the left atrial appendage. The right ventricular global systolic function is low normal. There is a trace of mitral regurgitation. There is mild tricuspid regurgitation. There is evidence of mild to moderate pulmonary hypertension. There is mild dilatation of the ascending aorta. There is plaque visualized in the transverse aorta. There is mild atherosclerotic plaque in the visualized segments of the aorta. There is plaque visualized in the descending aorta. Compared to the TTE of 12.20.17, the findings are similar except that the previously described structue in the apex was not seen on the JAMAR imaging. Findings were reviewed with the patient's and Dr. Muse Measurements Name Value Normal Range Aortic Annulus 2.3 cm (1.4 - 2.6) Ao root diameter (2D) 3.5 cm (2.1 - 3.5) Ascending Ao 3.5 cm (2.1 - 3.4) Name Value Normal Range TR Vmax 3.2 m/sec - TR peak gradient 41 mmHg - RAP 3 mmHg - RVSP 44 mmHg -
--- NOTE | 2017-11-01 15:09 | RAD ---
INDICATION: Post CVA. COMPARISON: August 20, 2009 TECHNIQUE: Bilateral carotid duplex scan. Stenosis estimations reflect velocity criteria that have been correlated to angiographic stenosis calculations based on distal internal carotid diameter. REPORT: Irregular cardiac rhythm noted. RIGHT ICA: 145 cm/s peak systolic 32 cm/s end diastolic CCA: 138 cm/s peak systolic ICA/CCA peak systolic ratio: 1.0 Mild calcific plaque at the RIGHT carotid bulb. Low resistance RIGHT internal carotid artery waveforms. Antegrade flow documented at the RIGHT vertebral artery. LEFT ICA: 203 cm/s peak systolic 39 cm/s end diastolic CCA: 150 cm/s peak systolic ICA/CCA peak systolic ratio: 1.0 Mild calcific plaque at the LEFT common carotid artery and bulb. Low resistance LEFT internal carotid artery waveforms. Antegrade flow documented at the LEFT vertebral artery. IMPRESSION: Less than 50% bilateral internal carotid artery stenosis without significant change compared with the 2009 exam. CPT II Codes: 3100F
[2017-11-01] MEDS ORDERED: NS 0.9% 1000 ML* 1,000 ML IV ONE (15:15)
--- NOTE | 2017-11-01 15:16 | RAD ---
Indication: Reevaluate ET tube and orogastric tube. COPD. Tobacco use. Comparison: October 30, 2017 Technique: Upright AP 1425 hours tip of endotracheal tube is 8 cm above the [place]. The orogastric tube passes outside the [id number] caudally at the level of the gastric body. Elevated lung volumes. Alveolar consolidation at the LEFT mid to lower lung zone and RIGHT lung base. Small LEFT pleural effusion. LEFT chest tube remains in place. No pneumothorax visualized. Negative for mediastinal shift. The heart, pulmonary vasculature, and mediastinal contours are unremarkable. Report: 1. Endotracheal tube and orogastric tube in place as described. 2. LEFT chest tube remains in place. No pneumothorax visualized. 3. No significant change in LEFT greater than RIGHT lung consolidation.
[2017-11-01] MEDS: Aspirin Low Dose CHEW TAB* 81 MG G TUBE SCH (15:26)
[2017-11-01] MEDS: Famotidine TAB* 20 MG PO SCH (15:27)
[2017-11-01] MEDS: cefTRIAXone(*) 2 GM in NS 0.9% 100 ML* 100 ML IVPB SCH (16:34)
[2017-11-01] MEDS: Atorvastatin* 40 MG TAB G TUBE SCH (17:07)
[2017-11-01] MEDS: Nicotine Patch Removal NOTE PATCH OFF SCH (21:16)
[2017-11-02] MEDS: Clindamycin 600 MG IVPREMIX(* 600 MG/50 ML SDV IV SCH ×2 (00:25→08:17)
[2017-11-02] MEDS: Insulin REGULAR(*) 1 UNITS UNIT SUBCUT SCH ×5 (00:36→23:54)
[2017-11-02] MEDS: Chlorhexidine MOUTHWASH 0.12%* 15 ML UDC TOPICAL SCH ×6 (03:57→23:46)
[2017-11-02] MEDS: Propofol* 100 ML IV SCH ×2 (04:32→10:14)
[2017-11-02] MEDS: Norepinephrine VIAL* 8 MG in NS 0.9% 500 ML* 492 ML IVPB SCH (05:04)
[2017-11-02 05:54] LABS: ABS Basophils 0 10^3/ul (0-0.2); ABS Eosinophils 0.1 10^3/ul (0-0.6); ABS Lymphocytes 1.5 10^3/ul (1.0-4.8); ABS Nucleated RBC 0.01 10^3/ul; Eosinophil % 0.7 % (0-6); Hematocrit 26 % (42-52); Hemoglobin 8.6 g/dl (14.0-18.0); Lymphocyte % 8.8 % (25-47); Mean Corpuscular HGB Conc 33 g/dl (31-36); Mean Corpuscular Hemoglobin 29 pg (27-31); Mean Corpuscular Volume 88 fL (80-94); Mean Platelet Volume 9 um3 (7.4-10.4); Nucleated Red Blood Cells % 0; Platelet Count 224 10^3/ul (150-450); Red Blood Count 2.95 10^6/ul (4.0-5.4); Red Cell Distribution Width 14 % (10.5-15); White Blood Count 16.5 10^3/ul (3.5-10.8)
[2017-11-02 06:00] LABS: INR 1.05 (0.77-1.02)
[2017-11-02] MEDS: Heparin VIAL(*) 5000 UNITS/ML VIAL (FIVE THOUSAND) SUBCUT SCH ×3 (06:11→22:20)
[2017-11-02 06:13] LABS: EGFR Non-African American 75.9 (>60)
[2017-11-02] MEDS: Nicotine PATCH 14 MG/24 HR* PATCH TRANSDERM SCH (08:16)
[2017-11-02] MEDS: methylPREDNISolone SOD 40 MG* 1 ML VIAL IV SCH (08:16)
[2017-11-02] MEDS: Aspirin Low Dose CHEW TAB* 81 MG G TUBE SCH (08:17)
[2017-11-02] MEDS: Famotidine TAB* 20 MG PO SCH (08:17)
--- NOTE | 2017-11-02 09:25 | PN ---
Date of Service: 11/02/17 Critical Care Services: Patient had an uneventful evening. Continues to be unresponsive when propofol is held. Vital Signs: Temp Pulse Resp BP SpO2 FiO2 98.8 F 68 18 137/65 96 30 Physical Exam: Gen:Intubated and receiving mechanical ventilation. On propofol at 20 mcg/kg/ min but unresponsive when held. HEENT: OT tube in place Lungs: No wheezes or crackles. Left chest tube: No leak with or without suction. Extremities: Warm. No cyanosis. Trace edema in legs. Neuro: No apparent focal deficits. Fluid Balance (Past 24 Hours): 11/02/17 06:59 Intake Total 1767 Output Total 1285 Balance +482 Weight 194 lb Intake: IV Fluids 1320 ABX - CLINDAMYCIN 118 NS (0.9%) 1202 IVPB 165 ABX - CLINDAMYCIN NS (0.9%) 165 Medicated IV 182 CC - Propofol/Diprivan 182 Oral 0 Tube Feeding Tube Feeding Flush Amount 100 Output: Chest Tube #1 35 Fregoso 1250 Tube Feeding Residual Amount Wasted Other: # Bowel Movements Estimated Stool Amount NOTE: Chest tube drainage only 35 cc past 24 hrs. Labs: 11/02/17 11/02/17 11/02/17 05:38 05:38 05:38 WBC 16.5 Hgb 8.6 Hct 26 Plt Count 224 ABG pH 7.49 ABG pCO2 44 ABG pO2 102 ABG O2 Saturation 98.7 Sodium 143 Potassium 4.5 Chloride 110 Carbon Dioxide 29 Anion Gap 4 BUN 50 Creatinine 0.99 BUN/Creatinine Ratio 50.5 Glucose 117 Calcium 7.8 Phosphorus 4.4 Magnesium 2.0 Total Bilirubin 0.40 AST 33 ALT 53 Alkaline Phosphatase 101 Total Protein 5.9 Albumin 2.0 Globulin 3.9 Studies: MRI pending Nutrition: Tube feedings Impression: Patient with strep intermedius empyema, who has apparently responded to antibiotics - the major problem now is the poor mental status, ? from septic encephalopathy vs microinfarctions. Neurology service has been consulted. Plan: 1. MRI today. 2. Place chest tube on water-seal. If no leak or significant drainage, can probably remove the tube. 3. Wean from ventilator when feasible, although patient cannot be extubated because of poor mental status (i.e., inability to protect airways). Code Status: Full Code Critical Care Time: 45 minutes
--- NOTE | 2017-11-02 12:52 | RAD ---
Indication: Post stroke, evaluate for anoxia. Image Sequences: Sagittal and axial T1, axial T2, FLAIR, diffusion and susceptibility weighted images of the brain were obtained. Ventricular structures are midline. No midline shift is noted. Wedge-shaped area of restriction of diffusion is noted in the right parietal lobe consistent with infarct. There may be some cortical susceptibility artifact suggestive of some petechial hemorrhage. No other areas of restriction of diffusion are noted. IMPRESSION: Restriction of diffusion in the posterior parietal lobe. No other areas of restriction of diffusion are noted.
[2017-11-02] MEDS: cefTRIAXone(*) 2 GM in NS 0.9% 100 ML* 100 ML IVPB SCH (16:46)
[2017-11-02] MEDS: Atorvastatin* 40 MG TAB G TUBE SCH (16:49)
--- NOTE | 2017-11-02 20:40 | CONS ---
CONSULTATION REPORT: DATE OF CONSULT: 11/02/17 PATIENT OF: Dr. Davis. HISTORY OF PRESENT ILLNESS: This 67-year-old man I am asked to evaluate for stroke and encephalopathy. He presented on 10/26/17 with one-day history of shortness of breath that was progressive and had history of sinus infection on antibiotics before that. He presented also with rapid atrial fibrillation. He was found to have acute respiratory failure with pneumonia and empyema, hypotension, and sepsis. He was intubated and remained intubated. I was called because of his ongoing encephalopathy and an abnormal CT scan and now MRI scan. He has been on propofol while intubated and this is just being held as of today but he has been immobile from the propofol. MEDICATIONS AT HOME: Included: 1. Albuterol inhaler p.r.n. 2. Nasonex 50 mcg both nares daily. 3. Ibuprofen p.r.n. CURRENT MEDICATIONS: Include: 1. The propofol has been stopped. 2. Solu-Medrol 40 mg IV daily. 3. Fentanyl p.r.n. push. 4. Pepcid 20 mg daily. 5. Ceftriaxone 2 g every 12 hours. 6. Lipitor 40 mg. 7. He has been on 81 mg of aspirin by G-tube daily. ALLERGIES: Include BEE VENOMS, PENICILLIN, and LEVAQUIN. SOCIAL HISTORY: He is a smoker. Does not drink or use illicit drugs. REVIEW OF SYSTEMS: He was unable to give a review of systems. PHYSICAL EXAM: Temperature 98.7, pulse 64, respirations 18, blood pressure 143/ 63. He was comatose with eyes closed. Pupils were 2 mm and sluggish, red reflex present. He did not move to noxious stimulation in all 4 extremities. Chest: Clear. Cardiovascular: Regular rate and rhythm. Abdomen: Soft. DIAGNOSTIC STUDIES/LAB DATA: I reviewed his MRI scan and his CT with the family. The MRI scan shows a subacute right parietal stroke with abnormalities both on FLAIR and diffusion weighted imaging. There may also be a tiny stroke in his left cerebella but this is not clear. His carotid ultrasound showed no significant stenosis. His TE echo showed no clear signs of clot. His blood gas was pH 7.08, pCO2 of 74, pO2 of 144. He had 643,000 white cells in his pleural fluid. He was positive IgG for mycoplasma, but negative IgM. Most recent CMP, had BUN of 50, calcium 7.8, ALT 53, total protein 5.9, otherwise negative. He had an LDL of 33. Most recent white count 16.5, hematocrit 26, platelets 224, INR 1.05 initial and most recent PTT 32.8. IMPRESSION: I discussed with Mr. Magallon's and son and also Dr. Davis that there may be 2 processes going on. He clearly has a right parietal stroke. This may be secondary to atrial fibrillation and it is possible that he would have left sided neglect in attention and possibly some left sided weakness. As he hopefully comes around, he may need to be on anticoagulation in the future depending on how his case evolves; however, for now he should be on aspirin 300 mg rectally. The more pressing problem is what degree of diffuse encephalopathy he has had from his acute respiratory failure. I discussed that it is too early to know since he has been on propofol and even though the half-life of propofol in the blood is short, it is lipid soluble and may take longer to come out of his system, so he will be watched for several days. His EEG did not show slowing, most likely in part from his propofol but did not show any epileptiform potentials. Thank you for sharing his case. [id number]/[facility] #: [id number] MAGGIE
--- NOTE | 2017-11-03 00:25 | EEG ---
ELECTROENCEPHALOGRAPHY: DATE OF STUDY: 11/01/17_, ROOM #ICU-06 DATE OF DICTATION: 11/02/17 PATIENT OF: Dr. Davis. CLINICAL PROBLEM: This is a 67-year-old man being evaluated for seizures. The patient is status post stroke. MEDICATIONS: Include: 1. Clindamycin. 2. Ceftriaxone. 3. Atorvastatin. 4. Levophed. 5. Solu-Medrol. 6. Fentanyl. 7. Propofol. 8. Aspirin. 9. Insulin. 10. Heparin. REPORT: With the patient intubated and sedated, background cerebral activity consists of diffuse 6 to 7 Hz rhythm. There are no epileptiform potentials, focal abnormalities, or major asymmetries of background are noted. CLINICAL IMPRESSION: This EEG is abnormal because of diffuse slowing of background consistent with encephalopathy, but nonspecific as to the etiology. There is no subclinical status epilepticus to explain this patient's mental status. [id number]/[facility] #: [id number] MTDD
[2017-11-03] MEDS: fentaNYL* 50 MCG/ML 2 ML VIAL (100 MCG VIAL) IV SLOW PU PRN ×2 (01:41→20:37)
[2017-11-03] MEDS: Chlorhexidine MOUTHWASH 0.12%* 15 ML UDC TOPICAL SCH ×6 (03:47→23:04)
[2017-11-03] MEDS: Insulin REGULAR(*) 1 UNITS UNIT SUBCUT SCH ×3 (05:57→17:45)
[2017-11-03] MEDS: Heparin VIAL(*) 5000 UNITS/ML VIAL (FIVE THOUSAND) SUBCUT SCH ×3 (05:58→23:04)
[2017-11-03 06:38] LABS: Hematocrit 26 % (42-52); Hemoglobin 8.6 g/dl (14.0-18.0); Mean Corpuscular HGB Conc 33 g/dl (31-36); Mean Corpuscular Hemoglobin 29 pg (27-31); Mean Corpuscular Volume 88 fL (80-94); Mean Platelet Volume 9 um3 (7.4-10.4); Platelet Count 228 10^3/ul (150-450); Red Blood Count 2.98 10^6/ul (4.0-5.4); Red Cell Distribution Width 14 % (10.5-15); White Blood Count 15.1 10^3/ul (3.5-10.8)
[2017-11-03 06:54] LABS: EGFR Non-African American 72.5 (>60)
--- NOTE | 2017-11-03 08:05 | RAD ---
Indication: Respiratory failure. Empyema. Chest tube on waterseal. History of tobacco use. Comparison: November 01, 2017 Technique: Upright AP 0614 hours Report: Endotracheal tube tip 4 cm above the [place]. LEFT IJ central venous catheter at level of superior vena cava directed central. Grossly unchanged position of the large-bore LEFT chest tube with the tip at the cephalocaudal level of the posterior fifth intercostal space. Negative for pneumothorax. Unchanged LEFT greater than RIGHT basilar airspace consolidation. Probable small LEFT pleural effusion. Accounting for leftward rotation the heart does not appear enlarged. Unremarkable central pulmonary vasculature. IMPRESSION: 1. No pneumothorax evident. 2. Unchanged LEFT greater than RIGHT basilar airspace consolidation. Probable small LEFT pleural effusion.
[2017-11-03] MEDS: methylPREDNISolone SOD 40 MG* 1 ML VIAL IV SCH (08:21)
[2017-11-03] MEDS: Famotidine TAB* 20 MG PO SCH (08:22)
[2017-11-03] MEDS: Aspirin Low Dose CHEW TAB* 81 MG G TUBE SCH (08:22)
[2017-11-03] MEDS ORDERED: Aspirin SUPP* 300 MG PR SCH (09:00)
--- NOTE | 2017-11-03 13:40 | PN ---
Date of Service: 11/03/17 Critical Care Services: Off propofol for about 24 hrs and still unresponsive. Clinical condition basically unchanged over past 24 hrs. Vital Signs: Temp Pulse Resp BP SpO2 FiO2 97.5 F 71 25 137/67 95 30 Physical Exam: Gen:Eyes partly open but unresponsive to verbal commands or pain. HEENT: Puillary reflexes intact. Lungs: Inspiratory crackles left base. Abdomen: Not distended Extremities: Maculopapular rash on soles of both feet. Fluid Balance (Past 24 Hours): 11/03/17 06:59 Intake Total 625 Output Total 2014 Balance -1390 Weight 192 lb Intake: IV Fluids 314 ABX - CLINDAMYCIN 100 NS (0.9%) 214 IVPB 59 ABX - CLINDAMYCIN 59 NS (0.9%) Medicated IV 77 CC - Propofol/Diprivan 77 Oral Tube Feeding 175 Tube Feeding Flush Amount Output: Chest Tube #1 115 Freg[place] 1900 Other: Estimated Void Large # Bowel Movements 2 Estimated Stool Amount Large # Voids 1 Labs: 11/03/17 11/03/17 11/03/17 06:25 06:25 11:53 WBC 15.1 Hgb 8.6 L Hct 26 L Plt Count 228 Sodium 147 H Potassium 4.5 Chloride 113 H Carbon Dioxide 31 Anion Gap 3 BUN 44 Creatinine 1.03 Glucose 153 H Calcium 7.8 L Studies: CXR: Opacification at left base - unchanged from prior x-ray. Nutrition: Jevity 1.2 at 70 cc/hr. Impression: No change in mental status off sedatives. Anoxic encephalopathy seems likely in this case. Plan: If mental status does not improve over next 24 hrs, will discuss "comfort measures only" care with the family.
[2017-11-03] MEDS: cefTRIAXone(*) 2 GM in NS 0.9% 100 ML* 100 ML IVPB SCH (16:51)
[2017-11-03] MEDS: Atorvastatin* 40 MG TAB G TUBE SCH (16:51)
[2017-11-04] MEDS: fentaNYL* 50 MCG/ML 2 ML VIAL (100 MCG VIAL) IV SLOW PU PRN ×3 (00:46→22:28)
[2017-11-04] MEDS: Insulin REGULAR(*) 1 UNITS UNIT SUBCUT SCH ×5 (01:27→20:10)
[2017-11-04] MEDS ORDERED: fentaNYL* 50 MCG/ML 2 ML VIAL (100 MCG VIAL) IV SLOW PU ONE (01:56)
[2017-11-04] MEDS: Chlorhexidine MOUTHWASH 0.12%* 15 ML UDC TOPICAL SCH ×5 (03:00→20:11)
[2017-11-04] MEDS: Heparin VIAL(*) 5000 UNITS/ML VIAL (FIVE THOUSAND) SUBCUT SCH ×3 (06:32→22:17)
[2017-11-04 06:47] LABS: Hematocrit 26 % (42-52); Hemoglobin 8.7 g/dl (14.0-18.0); Mean Corpuscular HGB Conc 33 g/dl (31-36); Mean Corpuscular Hemoglobin 30 pg (27-31); Mean Corpuscular Volume 89 fL (80-94); Mean Platelet Volume 9 um3 (7.4-10.4); Platelet Count 219 10^3/ul (150-450); Red Blood Count 2.93 10^6/ul (4.0-5.4); Red Cell Distribution Width 14 % (10.5-15); White Blood Count 13.1 10^3/ul (3.5-10.8)
[2017-11-04 07:02] LABS: EGFR Non-African American 71.7 (>60)
[2017-11-04] MEDS: Aspirin Low Dose CHEW TAB* 81 MG G TUBE SCH (08:59)
[2017-11-04] MEDS: Famotidine TAB* 20 MG PO SCH (08:59)
--- NOTE | 2017-11-04 13:59 | PN ---
Date of Service: 11/04/17 Critical Care Services: Seems more awake today, but does not respond to verbal commands. Remains on ventilator with minimum support. Attempt to remove ventilator support earlier today was unsuccessful. Vital Signs: Temp Pulse Resp BP SpO2 FiO2 99.1 F 68 11 137/63 96 30 Physical Exam: Gen:Eyes open but does not respond to verbal commands. HEENT: ET tube in place Lungs: Coarse rhonchi on right side. Chest tube on water seal - drainage about 30-50 cc/24h. Abdomen: Not distended Extremities: !-2+ edema all extremities Fluid Balance (Past 24 Hours): 11/04/17 06:59 Intake Total 1140 Output Total 1215 Balance -75 Weight 193 lb Intake: IV Fluids 259 ABX - CLINDAMYCIN NS (0.9%) 259 IVPB 105 ABX - CLINDAMYCIN NS (0.9%) 105 Medicated IV CC - Propofol/Diprivan Oral Tube Feeding 776 Tube Feeding Flush Amount Output: Chest Tube #1 50 Fregoso 1155 Tube Feeding Residual 10 Amount Wasted Other: Estimated Void # Bowel Movements 1 Estimated Stool Amount Small # Voids Labs: 11/04/17 11/04/17 06:30 06:30 WBC 13.1 Hgb 8.7 Hct 26 L Plt Count 219 Sodium 149 Potassium 4.2 Chloride 113 Carbon Dioxide 31 BUN 42 Creatinine 1.04 Glucose 196 Studies: None today Nutrition: Jevity 1.2 Impression: 1. More awake, but still unresponsive. 2. Hypernatremia with elevated BUN - probable "dehydration". Plan: 1. Infuse LR to correct volume deficit. 2. Daily wean attempts. 3. Palliative care consult. Family ( and son) aware of current clinical condition, and the management plan.
--- NOTE | 2017-11-04 14:48 | PN ---
Progress Note - Progress Note Date of Service: 11/04/17 Note: Palliative care follow up note: Gave MOLST to the . She is not ready to fill it out yet. Would like to review it with patient's son first before filling it out. Also wants to give patient a chance to wake up more. Would recommend readdressing MOLST over the next few days.
[2017-11-04] MEDS: cefTRIAXone(*) 2 GM in NS 0.9% 100 ML* 100 ML IVPB SCH (17:05)
[2017-11-04] MEDS: Atorvastatin* 40 MG TAB G TUBE SCH (18:04)
--- NOTE | 2017-11-04 21:06 | CONS ---
CC: Paramjit George MD * PALLIATIVE CARE CONSULTATION REPORT: DATE OF CONSULT: 11/04/17 PRIMARY CARE PHYSICIAN: Paramjit George MD REFERRING PHYSICIAN FOR CONSULTATION: Christiano Davis MD HOSPITAL COURSE: This is a 67-year-old male who presented to the emergency room on the with shortness of breath, found to have community-acquired pneumonia, was admitted to the ICU. He was found tachypneic, tachycardic, and hypoxic. He was placed on broad-spectrum antibiotics and high-flow nasal cannula. The patient had a chest tube placed on the for a large empyema and pulled out 1500 cc of purulent fluid and broaden his antibiotic coverage. On the morning of the , the patient went apneic and went to respiratory arrest and required emergent intubation. The patient was stopped sedation of propofol 3 days ago. He cognitively was not seemingly waking up or making purposeful movements and he had Neurology workup done. On the , he had a brain MRI that showed restriction of diffusion in the posterior parietal lobe, no other areas of restriction of diffusion noted. He also had an EEG done. There was abnormal diffuse slowing of background consistent with encephalopathy , but nonspecific etiology. No subclinical status epilepticus seen. Dr. Davis from the ICU felt that this is likely anoxic encephalopathy from prolonged hypoxia and not as much from his stroke that he had as well. He did try to extubate the patient, but he did not tolerate the weaning off. On my encounter, the patient's and the patient's good friend are at the bedside. The patient's is understanding of his hospital course, his complications , and his poor prognosis. She states that he would never want to live like a vegetable and does not want to be trached or get a feeding tube placed. She does state that he seems intermittently have purposeful movements on my encounter. When I asked if he had any pain, he did mouth no and shake his head no. Otherwise, I was not able to get him to elicit any yes or no questions. He is seemingly moving all extremities except for his left upper extremity. Otherwise, unable to obtain review of systems. PAST MEDICAL HISTORY: None. INPATIENT MEDICATIONS: 1. Tylenol 650 mg every 6 hours as needed. 2. DuoNeb every 4 hours as needed. 3. Aspirin 81 mg daily. 4. Atorvastatin 40 mg daily. 5. Ceftriaxone 2 g daily. 6. Chlorhexidine 15 mL topical every 4 hours scheduled. 7. Famotidine 20 mg daily. 8. Fentanyl 25 mcg every 2 hours as needed. 9. Heparin 5000 units subcu t.i.d. 10. Insulin regular sliding scale q.6 hours. ALLERGIES: BEE VENOM, PENICILLIN, and LEVOFLOXACIN. 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 Living at home with his . Independent of his ADLs. Smoking a pack per day for 40 years. No illicit drug use or alcohol use. His code status currently a full code. FAMILY HISTORY: Unable to obtain. REVIEW OF SYSTEMS: Unable to obtain. PHYSICAL EXAMINATION: Vitals: Temp 99.1, pulse rate 71, respiratory rate is 12 on mechanical ventilation of 30% FiO2, blood pressure 137/63. General: No acute distress with family at the bedside. Head: Normocephalic. Pupils are sluggish and minimally reactive, anicteric. Oropharynx: ET tube in place. Neck is supple. Cardiac: Regular rate and rhythm with soft systolic murmur heard throughout. Respiratory: Rhonchorous bilateral breath sounds. No increased work of breathing. Abdomen is soft, nontender, and nondistended. Extremities: Trace pretibial edema. Neurologic: The patient has spontaneous movement of his right upper and bilateral lower extremities, otherwise unable to follow commands. LABORATORY DATA: White count 13.1, hemoglobin 8.7, hematocrit 26, platelets 219. Sodium 149, potassium 4.2, chloride 113, bicarb 31, BUN 42, creatinine 1.04. ASSESSMENT AND PLAN: This is a 67-year-old male with a past medical history of tobacco use, who presents to the emergency room with shortness of breath, found to have community-acquired pneumonia with empyema who had a respiratory arrest, requiring emergent intubation and also found to have a stroke who remains minimally responsive. The family is aware of his poor prognosis. They do not want him to be in a vegetative state. The goal is to try to attempt extubation and depending on how he does, he may sustain on comfort measures or Dr. Davis may place a morphine drip as needed for comfort. Family is well aware that he may after extubation and not survive to discharge. I am going to address the MOLST form to be cleared that he is not to fulfill her wishes based on what the patient expressed. Thank you for this consultation. I will follow along with you. PATIENT TIME: Greater than 60 minutes was spent doing this consultation, more than half the time spent in direct patient contact. [id number]/[facility] #: [id number] MAGGIE
[2017-11-05] MEDS: Chlorhexidine MOUTHWASH 0.12%* 15 ML UDC TOPICAL SCH ×6 (00:13→20:59)
[2017-11-05] MEDS: Insulin REGULAR(*) 1 UNITS UNIT SUBCUT SCH ×4 (00:13→17:59)
--- NOTE | 2017-11-05 03:09 | PN ---
NEUROLOGICAL FOLLOWUP NOTE: DATE OF VISIT: 11/04/17 HISTORY: This is a 67-year-old man status post respiratory failure, status post intubation and treatment with propofol. Since being off the propofol two days ago, his feels his level of alertness is improving. He has been tried to be extubated today, but Dr. Davis did not feel he was ready yet for extubation. MEDICATIONS: Currently includes: 1. Albuterol nebulizer q.4 hours p.r.n. 2. Aspirin 81 mg per G tube. 3. Lipitor 40 mg per G tube. 4. Ceftriaxone. 5. Pepcid. 6. Fentanyl p.r.n. PHYSICAL EXAMINATION: Temperature 99.1, pulse 68, respirations 11, blood pressure 142/72. He had semi-purposeful movements and would react to light, noxious stimulation on both sides, but he did not purposely look at me or his or follow any commands. His said that she thought he nodded at her earlier. His eyes are partly opened, but does not open or shut eyes on commands. Cranial nerves revealed that he has 2-mm pupils that are sluggish. He had some [id number] movements with his eyes spontaneously, but it is unclear whether it was purposeful or not even though are clearly fixed and follow. He was intubated. There is no clear cut asymmetries of facial. He moved all extremities with at least 4/5 strength. Chest: Clear. Cardiovascular: Regular rate and rhythm. Abdomen: Soft with positive bowel sounds. LABORATORY DATA: Most recent labs include a white count of 13.5, hematocrit 26 , platelet count 219. INR 1.05 on . BMP today showed a sodium of 149, BUN of 42, glucose 196, calcium of 8. ASSESSMENT AND PLAN: I discussed with Dr. Davis and his that he had spontaneous movements and that appeared to me purposeful and had some partial eye opening. This represents a clear improvement from how he was 2 days ago, but his prognosis still remains guarded. It is unclear how much hypoxic- ischemic insult his brain took in terms of permanent damage. Discussed this both with and Dr. Davis that over the next several days time, we will have a better idea of whether he will continue to show improvement or whether he will have signs that his eventual degree of improvement will be quite limited. His case remains concerning. Dr. Davis will follow with for now , but I discussed with both, as Dr. Lockwood is coming on service and will be glad to see in followup as needed to address issues of prognosis. He has also had his focal stroke in association with this event and if he makes a good enough recovery, then this would need to be addressed further as well. Thank you for sharing his case. [id number]/[facility] #: [id number] MAGGIE
[2017-11-05] MEDS: fentaNYL* 50 MCG/ML 2 ML VIAL (100 MCG VIAL) IV SLOW PU PRN ×4 (03:50→21:13)
[2017-11-05] MEDS: Heparin VIAL(*) 5000 UNITS/ML VIAL (FIVE THOUSAND) SUBCUT SCH ×3 (05:43→21:41)
[2017-11-05] MEDS: Famotidine TAB* 20 MG PO SCH (08:12)
[2017-11-05] MEDS: Aspirin Low Dose CHEW TAB* 81 MG G TUBE SCH (08:12)
--- NOTE | 2017-11-05 13:24 | PN ---
Critical Care Services: Continues in a "vegetative state" (i.e., eyes open but unresponsive). Currently on a T-piece and tolerating it. Vital Signs: Temp Pulse Resp BP SpO2 FiO2 99.6 F 81 27 149/68 96 30 Physical Exam: Gen:Unresponsive HEENT:Pupils midposition and reactive. Lungs: Coarse rhonchi, L>>R Extremities:1-2+edema. No cyanosis Fluid Balance (Past 24 Hours): 11/05/17 06:59 Intake Total 2798 Output Total 3025 Balance -227 Weight 194 lb Intake: IV Fluids 589 ABX LR 500 NS (0.9%) 89 IVPB 125 ABX LR 125 NS (0.9%) Medicated IV CC - Propofol/Diprivan Tube Feeding 2044 Tube Feeding Flush Amount 40 Output: Chest Tube #1 100 Fregoso 2925 Labs: 11/04/17 11/05/17 11/05/17 19:01 00:08 05:38 POC Glucose (mg/dL) 153 H 174 H 158 H 11/05/17 11:52 POC Glucose (mg/dL) 190 H Studies: None today Nutrition: Tube feeding with Jevity 1.2 Impression: Weaned from ventilator, but continues to be unresponsive (off propofol for > 48 hrs). Plan: Assess for extubation and extubate if feasible. Prognosis is poor for satisfactory neurologic recovery. Patient's and son present at the bedside, and are aware of the current clinical condition and prognosis.
[2017-11-05] MEDS: Atorvastatin* 40 MG TAB G TUBE SCH (16:23)
[2017-11-05] MEDS: cefTRIAXone(*) 2 GM in NS 0.9% 100 ML* 100 ML IVPB SCH (16:23)
[2017-11-06] MEDS: Chlorhexidine MOUTHWASH 0.12%* 15 ML UDC TOPICAL SCH ×4 (00:21→11:53)
[2017-11-06] MEDS: Insulin REGULAR(*) 1 UNITS UNIT SUBCUT SCH ×2 (00:21→05:49)
[2017-11-06] MEDS: fentaNYL* 50 MCG/ML 2 ML VIAL (100 MCG VIAL) IV SLOW PU PRN (00:22)
[2017-11-06] MEDS ORDERED: NS 0.9% 1000 ML* 1,000 ML IV ONE (02:45)
[2017-11-06 03:29] LABS: ABS Basophils 0.1 10^3/ul (0-0.2); ABS Eosinophils 0.1 10^3/ul (0-0.6); ABS Monocytes 0.9 10^3/ul (0-0.8); ABS Nucleated RBC 0.01 10^3/ul; Eosinophil % 0.7 % (0-6); Hematocrit 20 % (42-52); Hemoglobin 6.5 g/dl (14.0-18.0); Lymphocyte % 5.5 % (25-47); Mean Corpuscular HGB Conc 33 g/dl (31-36); Mean Corpuscular Hemoglobin 30 pg (27-31); Mean Corpuscular Volume 90 fL (80-94); Mean Platelet Volume 10 um3 (7.4-10.4); Nucleated Red Blood Cells % 0; Platelet Count 214 10^3/ul (150-450); Red Blood Count 2.22 10^6/ul (4.0-5.4); Red Cell Distribution Width 14 % (10.5-15); White Blood Count 18.1 10^3/ul (3.5-10.8)
[2017-11-06 03:38] LABS: EGFR Non-African American 71.7 (>60)
[2017-11-06] MEDS: Heparin VIAL(*) 5000 UNITS/ML VIAL (FIVE THOUSAND) SUBCUT SCH (05:39)
[2017-11-06] MEDS: Aspirin Low Dose CHEW TAB* 81 MG G TUBE SCH (08:05)
[2017-11-06] MEDS: Famotidine TAB* 20 MG PO SCH (08:05)
[2017-11-06 09:19] VITALS: BP 112/54
[2017-11-06] MEDS ORDERED: Atropine 1% (ORAL/SL)* 15 ML BTL PO PRN (10:36)
[2017-11-06] MEDS ORDERED: LORazepam VIAL (for drip)* 200 MG in D5W 100 ML BAG* 100 ML IVPB SCH (11:00)
[2017-11-06] MEDS ORDERED: Morphine INJ* 10 MG/ML 1 ML CARPUJECT IV ONE (11:00)
[2017-11-06] MEDS ORDERED: LORazepam INJ* 2 MG/ML 1 ML VIAL IV PUSH ONE (11:00)
[2017-11-06] MEDS ORDERED: Morphine PCA 5 MG/ML * Titrate per Protocol PCA SCH (11:00)
--- NOTE | 2017-11-07 09:35 | DS ---
SUMMARY: DATE OF ADMISSION: 10/26/17 DATE OF : 11/06/17 HISTORY: This patient is a 67-year-old white male who was admitted with a large empyema in the left hemithorax and shortly after admission suffered a respiratory arrest and was successfully resuscitate d but never regained consciousness. CT scan after the respiratory arrest showed a CVA involving the right parietal lobe and possibly a smaller area of infarction involving the left parietal lobe. Rain use the patient did not regain consciousness, family agreed to comfort measures and on 11/06/17, dejon ent was extubated and placed on morphine and Ativan infusion and shortly thereafter developed apnea a nd was pronounced at 11:42 a.m. Family was present at the time of and an autopsy was d enied. FINAL DIAGNOSES: 1. Anoxic encephalopathy secondary to respiratory arrest. 2. Empyema of the left hemithorax. 3. Acute stroke involving the right parietal lobe. [id number]/[facility] #: [id number]
== END 2017-11-06 11:42 | disposition expired | DRG 870 ==
LOC: ED 10:36 → ICU 13:36
PROVIDERS: ADMIT Internal Medicine Critical Care Medicine; ATTEND Internal Medicine Critical Care Medicine
PROC: 5A09357 Assistance with Respiratory Ventilation, Less than 24 Consecutive Hours, Continuous Positive Airway Pressure (ICD-10-PCS; 2017-10-26)
PROC: 0BH17EZ Insertion of Endotracheal Airway into Trachea, Via Natural or Artificial Opening (ICD-10-PCS; principal; 2017-10-27)
PROC: 5A1955Z Respiratory Ventilation, Greater than 96 Consecutive Hours (ICD-10-PCS; 2017-10-27)
PROC: 05HN33Z Insertion of Infusion Device into Left Internal Jugular Vein, Percutaneous Approach (ICD-10-PCS; 2017-10-27)
PROC: 3E033XZ Introduction of Vasopressor into Peripheral Vein, Percutaneous Approach (ICD-10-PCS; 2017-10-27)
PROC: 03HB33Z Insertion of Infusion Device into Right Radial Artery, Percutaneous Approach (ICD-10-PCS; 2017-10-27)
PROC: B544ZZA Ultrasonography of Left Jugular Veins, Guidance (ICD-10-PCS; 2017-10-27)
PROC: 0T9B70Z Drainage of Bladder with Drainage Device, Via Natural or Artificial Opening (ICD-10-PCS; 2017-10-27)
PROC: B24BZZ4 Ultrasonography of Heart with Aorta, Transesophageal (ICD-10-PCS; 2017-11-01)
PROC: 4A00X4Z Measurement of Central Nervous Electrical Activity, External Approach (ICD-10-PCS; 2017-11-02)
PROC: 0W9B30Z Drainage of Left Pleural Cavity with Drainage Device, Percutaneous Approach (ICD-10-PCS; 2017-11-03)
PROC: 30243N1 Transfusion of Nonautologous Red Blood Cells into Central Vein, Percutaneous Approach (ICD-10-PCS; 2017-11-06)
DX: A41.9 Sepsis, unspecified organism (principal); I63.9 Cerebral infarction, unspecified; R65.21 Severe sepsis with septic shock; J86.9 Pyothorax without fistula; G93.1 Anoxic brain damage, not elsewhere classified; J96.01 Acute respiratory failure with hypoxia; J85.1 Abscess of lung with pneumonia; J96.02 Acute respiratory failure with hypercapnia; J18.9 Pneumonia, unspecified organism; I95.9 Hypotension, unspecified; N17.9 Acute kidney failure, unspecified; J93.82 Other air leak; E87.0 Hyperosmolality and hypernatremia; E87.5 Hyperkalemia; F17.210 Nicotine dependence, cigarettes, uncomplicated; R06.81 Apnea, not elsewhere classified; I48.0 Paroxysmal atrial fibrillation; N18.3 Chronic kidney disease, stage 3 (moderate); B95.4 Other streptococcus as the cause of diseases classified elsewhere; Z51.5 Encounter for palliative care; Z88.0 Allergy status to penicillin; Z88.1 Allergy status to other antibiotic agents; Z91.030 Bee allergy status; Z72.89 Other problems related to lifestyle
CPT/HCPCS: 36415; 36600; 70450; 70551; 71010; 71260; 71275; 80048; 80053; 80061; 80202; 81003; 81015; 82140; 82272; 82550; 82553; 82803; 82945; 83036; 83605; 83615; 83690; 83735; 83880; 84100; 84157; 84443; 84484; 85025; 85027; 85379; 85610; 85730; 86140; 86738; 86850; 86900; 86901; 86922; 87040; 87070; 87077; 87186; 87205; 87502; 87641; 87899; 89051; 92950; 93005; 93306; 93880; 94002; 94003; 94640; 94660; 94760; 95822; 99406; A9270-GY; J0282; J0330; J0456; J0610; J0696; J1160; J1644; J1940; J2060; J2185; J2270; J2704; J2920; J3010; J3370; P9040; Q9967